=== PATIENT | male | born 1970 | race Caucasian/White ===

== ENCOUNTER 2016-12-11 06:54 | Emergency (ER) | payer BC, OTHER ==
[~2016-12-11] VITALS: Ht 170.2 cm; Wt 81.2 kg
[~2016-12-11 06:54] MED LIST: ACETAMINOPHEN PO; EFFSR75 PO; LPT40 PO
[2016-12-11 07:04] VITALS: TEMP 36.7; Ht 170.2 cm; Wt 81.2 kg
[2016-12-11] MEDS ORDERED: MoRPHine SULFATE 10 MG/ML CARP/VIAL IM STA (07:23)
[2016-12-11] MEDS ORDERED: KETOROLAC TROMETHAMINE 60 MG/2 ML VIAL IM STA (07:23)
[2016-12-11] MEDS ORDERED: ONDANSETRON 4MG OD TAB PO ONE (07:30)
[2016-12-11] MEDS ORDERED: METH1TAB19 PO (07:35)
[2016-12-11] MEDS ORDERED: CYCL5TAB PO (07:35)
[2016-12-11] MEDS ORDERED: LPT/40 PO (07:35)
[2016-12-11] MEDS ORDERED: OXYC1TAB3 PO (08:55)
[2016-12-11 09:03] VITALS: BP 146/98; PULSE 87; O2SAT 96
--- NOTE | 2016-12-11 09:11 | EMERGENCY ROOM VISIT NOTE ---
History First contact with patient: 07:07 Chief Complaint: NECK PAIN Stated Complaint: SHOULDER,BACK PAIN,NECK History of Present Illness The patient is a 46 year old male who presents to the Emergency Room with complaints of severe neck, left shoulder and left upper extremity pain. The patient reports that he has been dealing with this pain for the past 1.5 months. He denies any recent injury to the neck, shoulder or upper extremity. His PCP, Dr. Mcqueen, got x-rays of his neck and shoulder. He was referred to Dr. Rodas, and saw his physician orthodontist assistant approximately 3-4 weeks ago. An injection was performed in the left shoulder without any relief. He was also given a prescription for prednisone. The patient reports that he was also eventually given a prescription for gabapentin 100 mg 3 times a day, all of which have not helped his pain. He complains of a burning sensation from the neck all the way to the shoulder and into the arm. He does admit to a prior history of severe trauma to the left forearm/wrist region, and has chronic ulnar weakness, decreased sensation and pain in his hand. He however reports that this pain is worsening, and now extending into the thumb, index and long fingers as well. The pain is worse with movement of the neck. Dr. Rodas's office wanted an MRI of the back. The patient reports that Dr. Mcqueen does not think that he needs an MRI. The patient voices severe frustration because of his worsening condition, and rates his discomfort a 10 out of 10. He cannot sleep because of the prednisone side effects, and has also broken out in a rash on his chest and back, along with diaphoresis as well. The patient is no longer taking prednisone. Review of Systems 10 system review was performed and was negative except for pertinent positives and negatives as indicated in history of present illness Social History Smoking Status: Never Smoker Current/Historical Medications Scheduled Atorvastatin (Lipitor), 40 MG PO DAILY Methylphenidate Hcl (Methylphenidate Hcl Er), 54 MG PO DAILY Venlafaxine Hcl (Effexor Extended Rel), 75 MG PO DAILY Scheduled PRN Cyclobenzaprine Hcl (Flexeril), 5 MG PO BID PRN for Muscle Spasms Oxycodone Ir (Roxicodone Ir), 1-2 TAB PO Q4H PRN for Pain Physical Exam Vital Signs Date Time Temp Pulse Resp B/P (MAP) Pulse Ox O2 Delivery O2 Flow Rate FiO2 12/11/16 09:03 87 16 146/98 96 12/11/16 07:04 36.7 99 18 163/84 98 Room Air Physical Exam CONSTITUTIONAL: Healthy and well nourished. Alert and oriented X 3 with positive affect. Patient appears in moderately severe discomfort from pain. HEENT: Normocephalic, atraumatic. Pupils equal, round and reactive. NECK: Full active range of motion without discomfort. Patient has reproducible pain/paresthesias the left upper extremity with both left and right lateral gaze. No palpable muscle spasms or step-offs within the central cervical spine. RESPIRATORY: Clear to auscultation bilaterally with no wheezing, crackles, rhonchi or stridor. CARDIOVASCULAR: Regular rate and rhythm with no murmurs, rubs or gallops. GASTROINTESTINAL: Bowel sounds present in all quadrants. Soft and nontender to palpation. MUSCULOSKELETAL: Examination shows a well-healed wound/surgical incision over the left on her aspect of the wrist. 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 Also has a positive compression test at the cubital tunnel. He has relatively decent range of motion of the left shoulder which causes some discomfort. 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 The patient reports that this is chronic. No additional tenderness to palpation through the intrascapular region or central thoracolumbar spine. Pulses are intact. INTEGUMENTARY: No rash or other significant dermatologic conditions noted. NEUROLOGIC: No focal neurologic deficits noted. Left hand and fingers are grossly sensory intact. Medical Decision & Procedures Medications Administered Medications (Trade) Dose Ordered Sig/Shawanda Route Start Time Stop Time Status Last Admin Dose Admin Morphine Sulfate (MoRPHine SULFATE INJ) 10 mg NOW STAT IM 12/11/16 07:23 12/11/16 07:25 DC 12/11/16 07:36 10 MG Ketorolac Tromethamine (Toradol Inj) 60 mg NOW STAT IM 12/11/16 07:23 12/11/16 07:25 DC 12/11/16 07:36 60 MG Ondansetron HCl (Zofran Odt) 4 mg ONE ONCE PO 12/11/16 07:30 12/11/16 07:31 DC 12/11/16 07:36 4 MG ED Course Patient history and physical exam were performed. Nurse's notes were reviewed. Vital signs were reviewed and normal. The patient appears quite frustrated today with his course of treatment of his medical condition. He brought a copy of his x-rays on disc for review. The patient reports that his PCP and current orthopedic surgeon are at odds as to need for MRI studies of the neck. The patient reports that he cannot tolerate the pain anymore. He is currently on gabapentin, recently finished a round of corticosteroids and taking Tylenol and Motrin without relief. The patient was administered IM morphine and Toradol, along with Zofran ODT to prevent nausea. This completely resolved the patient's pain, but was still complaining of numbness of the left upper extremity. The patient was provided contact for Dr. Chaidez, spine surgeon on-call that he may call tomorrow for an appointment. The patient also requested contact information for another physician as he would like to find a new PCP. He would prefer a doctor near where he lives in [place]. Was provided contact information for [facility], Dr. Ricks. He was provided a prescription for OxyIR 5 mg, dispensed #24 with no refills. He was encouraged to continue with his gabapentin prescription, which the patient reports that he has a refill. The patient was happy with plan of care, and voiced understanding of all discharge instructions. Medical Decision See previous section [place] Drug Monitoring Program Search Results: patient reviewed within database, no issues identified Medication Reconcilliation Current Medication List: was personally reviewed by me Blood Pressure Screening Patient's blood pressure: Normal blood pressure Impression Primary Impression: Left cervical radiculopathy Departure Information Prescriptions Oxycodone Ir (Roxicodone Ir) 5 Mg Tab 1-2 TAB PO Q4H Y for Pain, #24 TAB For Initial Treatment Prov: Jeffrey King PA 12/11/16 Referrals No Doctor, Assigned (PCP) Patient Instructions My [facility] [employer]
[2016-12-11] MEDS ORDERED: ATOR10TA88 PO (20:39)
[2016-12-11] MEDS ORDERED: GABA-112 PO (20:39)
[2016-12-14] MEDS ORDERED: LCTX PO (14:48)
[2016-12-14] MEDS ORDERED: OXYC1TAB3 PO (14:48)
[2016-12-14] MEDS ORDERED: DXY100 PO (14:48)
== END 2016-12-11 09:04 | disposition home or self-care (01) ==
LOC: C.EDB 06:56 → C.EDA 09:04
DX: M54.12 Radiculopathy, cervical region (principal); Z79.899 Other long term (current) drug therapy

== ENCOUNTER 2016-12-11 19:30 | Inpatient (IN) | payer BC ==
[~2016-12-11] VITALS: Ht 170.2 cm; Wt 80.7 kg
[~2016-12-11 19:30] MED LIST changes: +CYCL5TAB PO; +LPT/40 PO; +METH1TAB19 PO; +OXYC1TAB3 PO
[2016-12-11] MEDS ORDERED: MoRPHine SULFATE 10 MG/ML CARP/VIAL IV STA (19:45)
[2016-12-11] MEDS ORDERED: ONDANSETRON INJ 2 MG/ML 2 ML VIAL IV STA (19:45)
[2016-12-11] MEDS ORDERED: SODIUM CHLORIDE 0.9% 1000ML 1,000 ML IV ONE (19:45)
[2016-12-11] MEDS ORDERED: KETOROLAC TROMETHAMINE 30 MG/ML VIAL IV STA (19:45)
--- NOTE | 2016-12-11 19:48 | EMERGENCY ROOM VISIT NOTE ---
History Report prepared by Belkis: Javad Porras Under the Supervision of: Dr. dAen Sylvester M.D. First contact with patient: 19:40 Chief Complaint: SHOULDER PAIN Stated Complaint: EXTREME PAIN IN LT SHOULDER/NECK AND BACK History of Present Illness The patient is a 46 year old male who presents to the Emergency Room with complaints of constant left shoulder pain that started a couple of days ago. He rates his pains a 9/10 in severity. He states that he was seen here earlier today for the same symptoms. The patient states that he was sent home with oxycodone. He reports that he took 1 Oxycodone and 2 Gabapentin 100 mg at 1500. The patient states that he is still experiencing nerve pain in his left shoulder into his left upper back and left elbow. The patient denies chest pain and SOB. Source of History: patient Onset: a couple of days ago Position: shoulder (left) Symptom Intensity: 9/10 Timing: constant Modifying Factors (Relieving): other (Oxycodone) Associated Symptoms: + back pain, No chest pain, No SOB Review of Systems See HPI for pertinent positives & negatives. A total of 10 systems reviewed and were otherwise negative. Past Medical & Surgical Surgical Problems: (1) History of hand surgery Family History Diabetes mellitus Heart disease Hypertension Kidney disease Kidney stones Social History Smoking Status: Never Smoker Alcohol Use: occasionally Drug Use: none Marital Status: Housing Status: lives with family Occupation Status: employed Current/Historical Medications Scheduled Atorvastatin (Lipitor), 10 MG PO DAILY Gabapentin (Neurontin), 100 MG PO TID Methylphenidate Hcl (Methylphenidate Hcl Er), 54 MG PO DAILY Venlafaxine Hcl (Effexor Extended Rel), 75 MG PO DAILY Scheduled PRN Cyclobenzaprine Hcl (Flexeril), 5 MG PO BID PRN for Muscle Spasms Oxycodone Ir (Roxicodone Ir), 1-2 TAB PO Q4H PRN for Pain Allergies Coded Allergies: Lincomycin (Unverified Allergy, Mild, 12/11/16) Physical Exam Vital Signs Date Time Temp Pulse Resp B/P (MAP) Pulse Ox O2 Delivery O2 Flow Rate FiO2 12/12/16 00:05 111 18 105/73 92 Room Air 12/12/16 00:03 105 12/11/16 22:45 114 20 131/86 95 Room Air 12/11/16 20:51 129 22 131/87 95 12/11/16 20:16 94 Room Air 12/11/16 19:33 38.3 142 18 130/89 94 Room Air Physical Exam GENERAL: Patient is a healthy-appearing well-nourished 46 year old male. HEAD: Normocephalic atraumatic EYES: Ocular movements intact pupils equal and react to light OROPHARYNX mucous membranes are moist no exudates present no erythema or edema present NECK: Supple no nuchal rigidity CHEST: Good equal expansion. Macular papule rash. LUNGS: Clear and equal to auscultation CARDIAC: Normal S1 and S2 ABDOMEN: Soft nontender no guarding BACK: No CVA tenderness EXTREMITIES: No pain upon palpation normal muscle strength in all groups no clubbing cyanosis or edema. Full ROM of shoulder, elbow, and left wrist. NEURO: Patient is following commands and answering questions appropriately. Alert and oriented x3 Cranial Nerves 2-12 grossly intact Medical Decision & Procedures ER Provider Diagnostic Interpretation: L SHOULDER MIN 2 VIEWS ROUTINE CLINICAL HISTORY: Pt c/o left shoulder pain pain COMPARISON: 09/06/2013 DISCUSSION: The bones and joint spaces appear intact. There is no evidence of fracture, dislocation or bony disease. There is no evidence for soft tissue swelling. IMPRESSION: Negative study. The above report was generated using voice recognition software. It may contain grammatical, syntax or spelling errors. Electronically signed by: Filiberto Singh M.D. 12/11/2016 8:16 PM Dictated Date/Time: 12/11/2016 8:16 PM CHEST ONE VIEW PORTABLE CLINICAL HISTORY: Pt c/o left shoulder pain pain COMPARISON STUDY: No previous studies for comparison. FINDINGS: The bones soft tissues and hemidiaphragms are normal. The cardiomediastinal silhouette is normal. The lungs are clear. The pulmonary vasculature is normal. IMPRESSION: Negative chest. The above report was generated using voice recognition software. It may contain grammatical, syntax or spelling errors. Electronically signed by: Filiberto Singh M.D. 12/11/2016 8:16 PM Dictated Date/Time: 12/11/2016 8:16 PM CERVICAL SPINE COMBO HISTORY: Pain. Neuropathy. Pt c/o severe neck pain, fever TECHNIQUE: Multiplanar multisequence MRI of the cervical spine was performed both before and after the use of intravenous contrast. COMPARISON STUDY: None: Findings Signal characteristics of the vertebral bodies are unremarkable. Mild degenerative disc changes throughout. No abnormal postcontrast enhancement. Some compromise exam technically due to patient motion C2-C3: No significant central canal or neural foraminal narrowing. C3-C4: Broad-based bulging disc. Minimal impact with anterior cervical cord. C4-C5: Mild osteophytic narrowing right neuroforamina C5-C6: Mild broad-based bulging disc. Contact with but no significant deformity of the cervical cord. Mild osteophytic narrowing left neuroforamina C6-C7: Broad-based bulging disc showing contact with the cervical cord. No significant deformity of that structure. Moderate narrowing of the neuroforamina bilaterally. C7-T1: No significant central canal or neural foraminal narrowing. IMPRESSION: 1. Moderate broad-based bulging discs C3-C4, C5-C6, and C6-C7. 2. Osteophytic narrowing of several neural foramina bilaterally including a mild osteophytic narrowing of the left neuroforamina at C5-C6. 3. No abnormal postcontrast enhancement. The above report was generated using voice recognition software. It may contain grammatical, syntax or spelling errors. Electronically signed by: Filiberto Singh M.D. 12/11/2016 10:42 PM Dictated Date/Time: 12/11/2016 10:38 PM Laboratory Results 12/11/16 20:00 Red Blood Count 4.91, Mean Corpuscular Volume 90.8, Mean Corpuscular Hemoglobin 30.1, Mean Corpuscular Hemoglobin Concent 33.2, Mean Platelet Volume 10.0, Neutrophils (%) (Auto) 84.7, Lymphocytes (%) (Auto) 6.8, Monocytes (%) (Auto) 6.0, Eosinophils (%) (Auto) 1.1, Basophils (%) (Auto) 0.1, Neutrophils # (Auto) 12.38, Lymphocytes # (Auto) 1.00, Monocytes # (Auto) 0.88, Eosinophils # (Auto) 0.16, Basophils # (Auto) 0.02 12/11/16 20:00 Test 12/11/16 20:00 12/11/16 20:01 12/11/16 20:45 12/11/16 20:47 White Blood Count 14.63 K/uL (4.8-10.8) Red Blood Count 4.91 M/uL (4.7-6.1) Hemoglobin 14.8 g/dL (14.0-18.0) Hematocrit 44.6 % (42-52) Mean Corpuscular Volume 90.8 fL (80-100) Mean Corpuscular Hemoglobin 30.1 pg (25-34) Mean Corpuscular Hemoglobin Concent 33.2 g/dl (32-36) Platelet Count 210 K/uL (130-400) Mean Platelet Volume 10.0 fL (7.4-10.4) Neutrophils (%) (Auto) 84.7 % Lymphocytes (%) (Auto) 6.8 % Monocytes (%) (Auto) 6.0 % Eosinophils (%) (Auto) 1.1 % Basophils (%) (Auto) 0.1 % Neutrophils # (Auto) 12.38 K/uL (1.4-6.5) Lymphocytes # (Auto) 1.00 K/uL (1.2-3.4) Monocytes # (Auto) 0.88 K/uL (0.11-0.59) Eosinophils # (Auto) 0.16 K/uL (0-0.5) Basophils # (Auto) 0.02 K/uL (0-0.2) RDW Standard Deviation 44.8 fL (36.4-46.3) RDW Coefficient of Variation 13.6 % (11.5-14.5) Immature Granulocyte % (Auto) 1.3 % Immature Granulocyte # (Auto) 0.19 K/uL (0.00-0.02) Red Blood Cell Morphology Unremarkable Erythrocyte Sedimentation Rate 2 mm/hr (0-14) Prothrombin Time 9.5 SECONDS (9.0-12.0) Prothromb Time International Ratio 0.9 (0.9-1.1) Activated Partial Thromboplast Time 24.2 SECONDS (21.0-31.0) Partial Thromboplastin Ratio 0.9 Anion Gap 8.0 mmol/L (3-11) Est Creatinine Clear Calc Drug Dose 96.7 ml/min Estimated GFR () 105.6 Estimated GFR (Non- 91.1 BUN/Creatinine Ratio 23.4 (10-20) Calcium Level 8.3 mg/dl (8.5-10.1) Ferritin 826.0 ng/ml (8.0-388.0) Total Bilirubin 0.6 mg/dl (0.2-1) Aspartate Amino Transf (AST/SGOT) 198 U/L (15-37) Alanine Aminotransferase (ALT/SGPT) 156 U/L (12-78) Alkaline Phosphatase 87 U/L (45-117) C-Reactive Protein 0.91 mg/dl (0-0.29) Total Protein 6.4 gm/dl (6.4-8.2) Albumin 3.3 gm/dl (3.4-5.0) Globulin 3.1 gm/dl (2.5-4.0) Albumin/Globulin Ratio 1.1 (0.9-2) Acetaminophen Level < 2 ug/ml (10-30) Lyme Disease IgG Antibody NEG (NEG) Lyme Disease IgM Antibody NEG (NEG) Monoscreen NEG (NEG) Bedside Lactic Acid Venous 1.19 mmol/L (0.90-1.70) Urine Color YELLOW Urine Appearance CLEAR (CLEAR) Urine pH 5.0 (4.5-7.5) Urine Specific [place] 1.014 (1.000-1.030) Urine Protein NEG (NEG) Urine Glucose (UA) NEG (NEG) Urine Ketones NEG (NEG) Urine Occult Blood NEG (NEG) Urine Nitrite NEG (NEG) Urine Bilirubin NEG (NEG) Urine Urobilinogen NEG (NEG) Urine Leukocyte Esterase NEG (NEG) Urine WBC (Auto) 1-5 /hpf (0-5) Urine RBC (Auto) 0-4 /hpf (0-4) Urine Hyaline Casts (Auto) 1-5 /lpf (0-5) Urine Epithelial Cells (Auto) 0-5 /lpf (0-5) Urine Bacteria (Auto) NEG (NEG) Influenza Type A (RT-PCR) Neg for Influ A (NEG) Influenza Type A Antigen Neg for Influ A (NEG) Influenza Type B Antigen Neg for Influ B (NEG) Influenza Type B (RT-PCR) Neg for Influ B (NEG) Test 12/11/16 23:20 Labs reviewed by ED physician. Medications Administered Medications (Trade) Dose Ordered Sig/Shawanda Route Start Time Stop Time Status Last Admin Dose Admin Sodium Chloride 1,000 ml @ 999 mls/hr Q1H1M ONCE IV 12/11/16 19:45 12/11/16 20:45 DC 12/11/16 20:10 999 MLS/HR Ketorolac Tromethamine (Toradol Inj) 30 mg NOW STAT IV 12/11/16 19:45 12/11/16 19:49 DC 12/11/16 20:11 30 MG Morphine Sulfate (MoRPHine SULFATE INJ) 10 mg NOW STAT IV 12/11/16 19:45 12/11/16 19:49 DC 12/11/16 20:11 10 MG Ondansetron HCl (Zofran Inj) 4 mg NOW STAT IV 12/11/16 19:45 12/11/16 19:49 DC 12/11/16 20:11 4 MG Diphenhydramine HCl (Benadryl Inj) 50 mg NOW STAT IV 12/11/16 20:29 12/11/16 20:30 DC 12/11/16 20:33 50 MG Piperacillin Sod/ Tazobactam Sod (Zosyn Iv) 4.5 gm NOW STAT IV 12/11/16 20:40 12/11/16 20:42 DC 12/11/16 22:46 4.5 GM Vancomycin HCl 1000 mg/Sodium Chloride 270 ml @ 125 mls/hr NOW STAT IV 12/11/16 20:40 12/11/16 22:49 DC 12/12/16 00:04 125 MLS/HR Sodium Chloride 1,000 ml @ 999 mls/hr Q1H1M STAT IV 12/11/16 20:42 12/11/16 21:42 DC 12/11/16 20:51 999 MLS/HR Sodium Chloride 500 ml @ 999 mls/hr Q31M STAT IV 12/11/16 21:36 12/11/16 22:06 DC 12/12/16 00:04 999 MLS/HR ED Course 1909: Past medical records reviewed. The patient was evaluated in room B11B. A complete history and physical examination was performed. 5: Ordered Zofran Injection 4 mg IV, Morphine Sulfate 10 mg IV, Toradol Injection 30 mg IV, Sodium Chloride 1000 ml @ 999 mls/hr IV. 2019: Ordered Benadryl Injection 50 mg IV. 2039: Ordered Vancomycin HCl 1000 mg/ Sodium Chloride 270 ml @ 125 mls/hr IV, Zosyn Iv 4.5 mg IV. 2041: Ordered Sodium Chloride 1000 ml @ 999 mls/hr IV. 2136: Ordered Sodium Chloride 500 ml @ 999 mls/hr IV. 2243: Ordered Zosyn Iv 4.5 gm IV. 2245: Ordered 8.2 mmol IV. Medical Decision The differential diagnosis includes etiologies such as sepsis, UTI, pneumonia, metabolic, electrolyte abnormalities, cardiac sources, intracerebral event, toxicologic, neurologic, as well as others were entertained. This is a 46-year-old male who was seen earlier in the emergency department for left shoulder pain. The patient returns to emergency department complaining of left shoulder pain. He is febrile here and tachycardic. Based on these findings a septic workup was initiated. An ESR CRP as well as lactic acid were obtained. These were all found to be normal. Blood cultures were obtained. The patient was given normal saline bolus 30 mL's per kilogram and started on Zosyn as well as by can mycin. He does have a slight elevation in his liver enzymes therefore a hepatitis panel was initiated. Due to the patient's pain running down his left arm he was sent for an MRI of the C-spine however this did not show any acute process. I did discuss the case with the hospitalist service who agreed to admit the patient. Patient was in agreement with the treatment plan. Medication Reconcilliation Current Medication List: was personally reviewed by me Blood Pressure Screening Patient's blood pressure: Elevated blood pressure Impression Primary Impression: Left shoulder pain Additional Impressions: Fever SIRS (systemic inflammatory response syndrome) Scribe Attestation The scribe's documentation has been prepared under my direction and personally reviewed by me in its entirety. I confirm that the note above accurately reflects all work, treatment, procedures, and medical decision making performed by me. Departure Information Dispostion Home / Self-Care Referrals No Doctor, Assigned (PCP) Patient Instructions My [facility] Problem Qualifiers Primary Impression: Left shoulder pain Chronicity: acute Qualified Codes: M25.512 - Pain in left shoulder Additional Impressions: Fever Fever type: unspecified Qualified Codes: R50.9 - Fever, unspecified
--- NOTE | 2016-12-11 20:17 | DIAGNOSTIC IMAGING REPORT ---
CHEST ONE VIEW PORTABLE CLINICAL HISTORY: Pt c/o left shoulder pain pain COMPARISON STUDY: No previous studies for comparison. FINDINGS: The bones soft tissues and hemidiaphragms are normal. The cardiomediastinal silhouette is normal. The lungs are clear. The pulmonary vasculature is normal. IMPRESSION: Negative chest. The above report was generated using voice recognition software. It may contain grammatical, syntax or spelling errors. Electronically signed by: Filiberto Singh M.D. 12/11/2016 8:16 PM Dictated Date/Time: 12/11/2016 8:16 PM
--- NOTE | 2016-12-11 20:18 | DIAGNOSTIC IMAGING REPORT ---
L SHOULDER MIN 2 VIEWS ROUTINE CLINICAL HISTORY: Pt c/o left shoulder pain pain COMPARISON: 09/06/2013 DISCUSSION: The bones and joint spaces appear intact. There is no evidence of fracture, dislocation or bony disease. There is no evidence for soft tissue swelling. IMPRESSION: Negative study. The above report was generated using voice recognition software. It may contain grammatical, syntax or spelling errors. Electronically signed by: Filiberto Singh M.D. 12/11/2016 8:16 PM Dictated Date/Time: 12/11/2016 8:16 PM
[2016-12-11] MEDS ORDERED: DiphenhydrAMINE HCL 50 MG/ML VIAL ONE (20:19)
[2016-12-11 20:28] LABS: HEMATOCRIT 44.6 % (42-52); MEAN CELL VOLUME 90.8 fL (80-100); MEAN CORPUSCULAR HEMOGLOBIN 30.1 pg (25-34); MEAN CORPUSCULAR HGB CONC 33.2 g/dl (32-36); PLATELET COUNT 210 K/uL (130-400); RED BLOOD COUNT 4.91 M/uL (4.7-6.1); WHITE BLOOD COUNT 14.63 K/uL (4.8-10.8)
[2016-12-11] MEDS ORDERED: DiphenhydrAMINE HCL 50 MG/ML VIAL IV STA (20:29)
[2016-12-11 20:39] LABS: INR 0.9 (0.9-1.1); PARTIAL THROMBOPLASTIN RATIO 0.9; PROTHROMBIN TIME (PATIENT) 9.5 SECONDS (9.0-12.0)
[2016-12-11] MEDS ORDERED: ATOR10TA88 PO (20:39)
[2016-12-11] MEDS ORDERED: GABA-112 PO (20:39)
[2016-12-11] MEDS ORDERED: VANCOMYCIN INJ 1,000 MG in SODIUM CHLORIDE 0.9% 250ML 250 ML IV STA (20:40)
[2016-12-11] MEDS ORDERED: PIPERACILLIN/TAZOBACTAM 4.5 GM/100ML D5W IV STA (20:40)
[2016-12-11] MEDS ORDERED: SODIUM CHLORIDE 0.9% 1000ML 1,000 ML IV STA (20:42)
[2016-12-11 20:47] LABS: BUN/CREATININE RATIO 23.4 (10-20); CALCIUM 8.3 mg/dl (8.5-10.1)
[2016-12-11 20:49] LABS: ALB/GLOB RATIO 1.1 (0.9-2); C-REACTIVE PROTEIN 0.91 mg/dl (0-0.29)
[2016-12-11 21:06] LABS: BASO % 0.1 %; BASO ABS # 0.02 K/uL (0-0.2); COMPLETE YES; EOS % 1.1 %; IG% 1.3 %; LYMPH % 6.8 %; NEUT % 84.7 %
[2016-12-11 21:17] LABS: LYME DISEASE AB IGG NEG (NEG); LYME DISEASE AB IGM NEG (NEG)
[2016-12-11] MEDS ORDERED: SODIUM CHLORIDE 0.9% 500ML 500 ML IV STA (21:36)
[2016-12-11 22:05] LABS: URINE APPEARANCE CLEAR (CLEAR); URINE BILIRUBIN NEG (NEG); URINE COLOR YELLOW; URINE EPITHELIAL CELL AUTO 0-5 /lpf (0-5); URINE NITRITE NEG (NEG); URINE SPECIFIC GRAVITY 1.014 (1.000-1.030); UROBILINOGEN NEG (NEG); ZZUR CULT IF INDIC CLEAN CATCH NO
[2016-12-11 22:16] LABS: MANUAL MICROSCOPIC REQUIRED? NO; REVIEW REQ? NO
[2016-12-11] MEDS ORDERED: PIPERACILLIN/TAZOBACTAM 4.5 GM/100ML D5W ONE (22:43)
--- NOTE | 2016-12-11 22:44 | DIAGNOSTIC IMAGING REPORT ---
CERVICAL SPINE COMBO HISTORY: Pain. Neuropathy. Pt c/o severe neck pain, fever TECHNIQUE: Multiplanar multisequence MRI of the cervical spine was performed both before and after the use of intravenous contrast. COMPARISON STUDY: None: Findings Signal characteristics of the vertebral bodies are unremarkable. Mild degenerative disc changes throughout. No abnormal postcontrast enhancement. Some compromise exam technically due to patient motion C2-C3: No significant central canal or neural foraminal narrowing. C3-C4: Broad-based bulging disc. Minimal impact with anterior cervical cord. C4-C5: Mild osteophytic narrowing right neuroforamina C5-C6: Mild broad-based bulging disc. Contact with but no significant deformity of the cervical cord. Mild osteophytic narrowing left neuroforamina C6-C7: Broad-based bulging disc showing contact with the cervical cord. No significant deformity of that structure. Moderate narrowing of the neuroforamina bilaterally. C7-T1: No significant central canal or neural foraminal narrowing. IMPRESSION: 1. Moderate broad-based bulging discs C3-C4, C5-C6, and C6-C7. 2. Osteophytic narrowing of several neural foramina bilaterally including a mild osteophytic narrowing of the left neuroforamina at C5-C6. 3. No abnormal postcontrast enhancement. The above report was generated using voice recognition software. It may contain grammatical, syntax or spelling errors. Electronically signed by: Filiberto Singh M.D. 12/11/2016 10:42 PM Dictated Date/Time: 12/11/2016 10:38 PM
[2016-12-11] MEDS ORDERED: GADAVIST IV PRN (22:45)
[2016-12-11 23:53] LABS: INFLUENZA A PCR Neg for Influ A (NEG); INFLUENZA B PCR Neg for Influ B (NEG)
[2016-12-12 00:09] LABS: CKMB/CK RATIO 1.9 (0-3.0)
--- NOTE | 2016-12-12 00:43 | History and Physical ---
History & Physical Date & Time of Service: Dec 12, 2016 at 00:43 . Chief Complaint: neck and left shoulder pain . Primary Care Physician: No Doctor, Assigned History of Present Illness Source: patient, clinic records, hospital records 46-year-old male followed by Dr. Mcqueen. History of cervical degenerative disc disease and other problems noted below. Experienced worsening neck and left shoulder pain a couple months ago. Was seen by Orthopedics a few weeks ago.. Left shoulder injected with steroids, patient believes for possible tendinitis. Seen in clinic 11/[address] Mcqueen and started on gabapentin. He continued to have cervical pain that seemed to radiate to his left hand. Seen in urgent care center and prescribed prednisone. Seen in ED here earlier today because of worsening pain. Given prescription for oxycodone interaction is made for outpatient follow-up. This afternoon, he developed fever and chills. He returned to the ED this evening because of persistent severe pain left shoulder. Pt reports that oxycodone helps some, but does not relieve the pain. Pain severe- 9-10/10, worse with movement of arm. Seems that he has both localized shoulder pain as well as cervical pain radiating down the left arm. . Past Medical/Surgical History Chronic and Resolved Medical Problems: (1) ADHD Status: Chronic (2) Degenerative cervical disc Status: Chronic (3) Dyslipidemia Status: Chronic (4) GERD (gastroesophageal reflux disease) Status: Chronic Surgical Problems: (1) Status post reconstruction hand Status: Chronic . Family History Diabetes mellitus Heart disease Hypertension Kidney disease Kidney stones Social History Smoking Status: Never Smoker Alcohol Use: socially Drug Use: none Marital Status: Occupational Status: employed Multi-Drug Resistant Organisms History of MDRO: No Allergies Coded Allergies: Lincomycin (Unverified Allergy, Mild, 12/11/16) Home Medications Scheduled Atorvastatin (Lipitor), 10 MG PO DAILY Gabapentin (Neurontin), 100 MG PO TID Methylphenidate Hcl (Methylphenidate Hcl Er), 54 MG PO DAILY Venlafaxine Hcl (Effexor Extended Rel), 75 MG PO DAILY Scheduled PRN Cyclobenzaprine Hcl (Flexeril), 5 MG PO BID PRN for Muscle Spasms Oxycodone Ir (Roxicodone Ir), 1-2 TAB PO Q4H PRN for Pain Review of Systems Constitutional: + fever, + chills, No weight loss Eyes: No worsening of vision, No diplopia ENT: No nasal symptoms, No sore throat Respiratory: No cough, No shortness of breath Cardiovascular: No chest pain Abdomen: No pain, No nausea, No vomiting, No diarrhea Musculoskeletal: + joint pain Genitourinary - Male: No hematuria, No dysuria Neurologic: + problem reported (no headache) Endocrine: No excessive thirst, No excessive urination Hematologic / Lymphatic: No abnormal bleeding/bruising, No swollen lymph nodes Integumentary: + rash (rash on chest and back started few days ago) Physical Exam Vital Signs Date Time Temp Pulse Resp B/P (MAP) Pulse Ox O2 Delivery O2 Flow Rate FiO2 12/12/16 00:05 111 18 105/73 92 Room Air 12/12/16 00:03 105 12/11/16 22:45 114 20 131/86 95 Room Air 12/11/16 20:51 129 22 131/87 95 12/11/16 20:16 94 Room Air 12/11/16 19:33 38.3 142 18 130/89 94 Room Air General Appearance: WD/WN, + mild distress Head: normocephalic, atraumatic Eyes: normal inspection, PERRL, EOMI, sclerae normal (conjunctivae pink) ENT: hearing grossly normal, pharynx normal Neck: supple, no adenopathy, thyroid normal, trachea midline Respiratory/Chest: lungs clear, no respiratory distress, no accessory muscle use Cardiovascular: regular rate, rhythm, no edema, no gallop, no JVD, no murmur, normal peripheral pulses Abdomen/GI: normal bowel sounds, non tender, soft, no organomegaly, no pulsatile mass Extremities/Musculoskelatal: normal inspection, no calf tenderness, normal capillary refill, + pertinent finding (tenderness overlying left shoulder bilaterally; no erythema or warmth) 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 as tested (PERRL, EOMI), no motor/sensory deficits (motor strength grossly intact), alert, normal reflexes, oriented x 3 Skin: + rash (pustular rash trunk with multiple lesions) Diagnostics Laboratory Results Results Past 24 Hours Test 12/11/16 20:00 12/11/16 20:01 12/11/16 20:45 12/11/16 20:47 Range/Units White Blood Count 14.63 4.8-10.8 K/uL Red Blood Count 4.91 4.7-6.1 M/uL Hemoglobin 14.8 14.0-18.0 g/dL Hematocrit 44.6 42-52 % Mean Corpuscular Volume 90.8 80-100 fL Mean Corpuscular Hemoglobin 30.1 25-34 pg Mean Corpuscular Hemoglobin Concent 33.2 32-36 g/dl Platelet Count 210 130-400 K/uL Mean Platelet Volume 10.0 7.4-10.4 fL Neutrophils (%) (Auto) 84.7 % Lymphocytes (%) (Auto) 6.8 % Monocytes (%) (Auto) 6.0 % Eosinophils (%) (Auto) 1.1 % Basophils (%) (Auto) 0.1 % Neutrophils # (Auto) 12.38 1.4-6.5 K/uL Lymphocytes # (Auto) 1.00 1.2-3.4 K/uL Monocytes # (Auto) 0.88 0.11-0.59 K/uL Eosinophils # (Auto) 0.16 0-0.5 K/uL Basophils # (Auto) 0.02 0-0.2 K/uL RDW Standard Deviation 44.8 36.4-46.3 fL RDW Coefficient of Variation 13.6 11.5-14.5 % Immature Granulocyte % (Auto) 1.3 % Immature Granulocyte # (Auto) 0.19 0.00-0.02 K/uL Red Blood Cell Morphology Unremarkable Erythrocyte Sedimentation Rate 2 0-14 mm/hr Prothrombin Time 9.5 9.0-12.0 SECONDS Prothromb Time International Ratio 0.9 0.9-1.1 Activated Partial Thromboplast Time 24.2 21.0-31.0 SECONDS Partial Thromboplastin Ratio 0.9 Sodium Level 136 136-145 mmol/L Potassium Level 4.0 3.5-5.1 mmol/L Chloride Level 103 98-107 mmol/L Carbon Dioxide Level 25 21-32 mmol/L Anion Gap 8.0 3-11 mmol/L Blood Urea Nitrogen 23 7-18 mg/dl Creatinine 1.00 0.60-1.40 mg/dl Est Creatinine Clear Calc Drug Dose 96.7 ml/min Estimated GFR () 105.6 Estimated GFR (Non- 91.1 BUN/Creatinine Ratio 23.4 10-20 Random Glucose 96 70-99 mg/dl Calcium Level 8.3 8.5-10.1 mg/dl Ferritin 826.0 8.0-388.0 ng/ml Total Bilirubin 0.6 0.2-1 mg/dl Aspartate Amino Transf (AST/SGOT) 198 15-37 U/L Alanine Aminotransferase (ALT/SGPT) 156 12-78 U/L Alkaline Phosphatase 87 45-117 U/L C-Reactive Protein 0.91 0-0.29 mg/dl Total Protein 6.4 6.4-8.2 gm/dl Albumin 3.3 3.4-5.0 gm/dl Globulin 3.1 2.5-4.0 gm/dl Albumin/Globulin Ratio 1.1 0.9-2 Acetaminophen Level < 2 10-30 ug/ml Lyme Disease IgG Antibody NEG NEG Lyme Disease IgM Antibody NEG NEG Monoscreen NEG NEG Bedside Lactic Acid Venous 1.19 0.90-1.70 mmol/L Urine Color YELLOW Urine Appearance CLEAR CLEAR Urine pH 5.0 4.5-7.5 Urine Specific [place] 1.014 1.000-1.030 Urine Protein NEG NEG Urine Glucose (UA) NEG NEG Urine Ketones NEG NEG Urine Occult Blood NEG NEG Urine Nitrite NEG NEG Urine Bilirubin NEG NEG Urine Urobilinogen NEG NEG Urine Leukocyte Esterase NEG NEG Urine WBC (Auto) 1-5 0-5 /hpf Urine RBC (Auto) 0-4 0-4 /hpf Urine Hyaline Casts (Auto) 1-5 0-5 /lpf Urine Epithelial Cells (Auto) 0-5 0-5 /lpf Urine Bacteria (Auto) NEG NEG Influenza Type A (RT-PCR) Neg for Influ A NEG Influenza Type A Antigen Neg for Influ A NEG Influenza Type B Antigen Neg for Influ B NEG Influenza Type B (RT-PCR) Neg for Influ B NEG Test 12/11/16 21:39 12/11/16 23:20 Range/Units Creatine Kinase MB Ratio 1.9 0-3.0 Total Creatine Kinase 111 39-308 U/L Creatine Kinase MB 2.2 0.5-3.6 ng/ml Troponin I 0.025 0-0.045 ng/ml Hepatitis C Antibody NEG NEG Microbiology Results 12/11/16 Blood Culture, Received Pending 12/11/16 Blood Culture, Received Pending Diagnostic Radiology CHEST ONE VIEW PORTABLE FINDINGS: The bones soft tissues and hemidiaphragms are normal. The cardiomediastinal silhouette is normal. The lungs are clear. The pulmonary vasculature is normal. IMPRESSION: Negative chest. The above report was generated using voice recognition software. It may contain grammatical, syntax or spelling errors. Electronically signed by: Filiberto Singh M.D. 12/11/2016 8:16 PM Dictated Date/Time: 12/11/2016 8:16 PM L SHOULDER MIN 2 VIEWS ROUTINE CLINICAL HISTORY: Pt c/o left shoulder pain pain COMPARISON: 09/06/2013 DISCUSSION: The bones and joint spaces appear intact. There is no evidence of fracture, dislocation or bony disease. There is no evidence for soft tissue swelling. IMPRESSION: Negative study. The above report was generated using voice recognition software. It may contain grammatical, syntax or spelling errors. Electronically signed by: Filiberto Singh M.D. 12/11/2016 8:16 PM Dictated Date/Time: 12/11/2016 8:16 PM CERVICAL SPINE COMBO Findings Signal characteristics of the vertebral bodies are unremarkable. Mild degenerative disc changes throughout. No abnormal postcontrast enhancement. Some compromise exam technically due to patient motion C2-C3: No significant central canal or neural foraminal narrowing. C3-C4: Broad-based bulging disc. Minimal impact with anterior cervical cord. C4-C5: Mild osteophytic narrowing right neuroforamina C5-C6: Mild broad-based bulging disc. Contact with but no significant deformity of the cervical cord. Mild osteophytic narrowing left neuroforamina C6-C7: Broad-based bulging disc showing contact with the cervical cord. No significant deformity of that structure. Moderate narrowing of the neuroforamina bilaterally. C7-T1: No significant central canal or neural foraminal narrowing. IMPRESSION: 1. Moderate broad-based bulging discs C3-C4, C5-C6, and C6-C7. 2. Osteophytic narrowing of several neural foramina bilaterally including a mild osteophytic narrowing of the left neuroforamina at C5-C6. 3. No abnormal postcontrast enhancement. The above report was generated using voice recognition software. It may contain grammatical, syntax or spelling errors. Electronically signed by: Filiberto Singh M.D. 12/11/2016 10:42 PM Dictated Date/Time: 12/11/2016 10:38 PM . Impression Assessment and Plan FEVER / SEPSIS Meets criteria for sepsis per 2001 definition and current CMS guidelines (fever , tachycardia, leukocytosis). Hemodynamically stable. Serum lactate 1.19. Source of infection uncertain. Patient has been experiencing neck and left shoulder pain as outlined in the HPI. No apparent epidural abscess cervical spine per MRI. No soft tissue swelling left shoulder per plain films. Recent onset pustular rash on trunk. Blood cultures were obtained in ED and patient was started on broad-spectrum antibiotic coverage with piperacillin/tazobactam and vancomycin. Will continue same antibiotics. Check MRI left shoulder to rule out septic arthritis. Consult ID. NECK / SHOULDER PAIN Ongoing / progressive problem for several weeks. Imaging of cervical spine per MRI demonstrates degenerative disc disease as detailed above. Uncertain whether shoulder pain is radicular in nature or related to issue in shoulder region. Check MRI left shoulder to rule out septic arthritis. Consult Orthopedics for their input. ELEVATED LFT'S Liver US and hepatitis evaluation ordered in ED- results pending. Patient denies excessive use of alcohol or acetaminophen. Follow. VTE PROPHYLAXIS SQ enoxaparin. Ambulate. DISPOSITION Expected discharge to home. Internal Medicine follow-up with Dr. Mcqueen. . VTE Prophylaxis Given or contraindicated: Enoxaparin (Lovenox)SQ
[2016-12-12] MEDS ORDERED: ACETAMINOPHEN 325 MG TAB PO PRN (00:45)
[2016-12-12 01:46] VITALS: BP 128/87; PULSE 98; TEMP 36.8; O2SAT 98; Ht 170.2 cm; Wt 80.7 kg
[2016-12-12] MEDS ORDERED: PIPERACILL/TAZOBAC IV 4.5 GM in DEXTROSE 5% 100ML 100 ML IV SCH (06:30)
[2016-12-12] MEDS ORDERED: CYCLOBENZAPRINE HCL 5 MG TAB PO PRN (06:30)
[2016-12-12] MEDS ORDERED: PIPERACILL/TAZOBAC IV 4.5 GM in DEXTROSE 5% 100ML IV ONE (06:45)
[2016-12-12] MEDS ORDERED: VANCOMYCIN CONSULT ACTIVE PRN (06:45)
[2016-12-12] MEDS: OXYCODONE HCL IR 5 MG TAB (IMMEDIATE RELEASE) PO PRN ×2 (06:45→15:04)
[2016-12-12] MEDS ORDERED: PIPERACILL/TAZOBAC CONSULT ACTIVE PRN (06:45)
--- NOTE | 2016-12-12 06:46 | DIAGNOSTIC IMAGING REPORT ---
ABDOMEN LIMITED (US) HISTORY: 46 years-old Male Pt c/o transaminase elevation elevated LFTs. Patient complains of acute pain in the left shoulder and back. COMPARISON: None available TECHNIQUE: Multiple real-time sonographic images of the abdominal right upper quadrant were obtained assessing grayscale appearance and color flow. FINDINGS: Imaged pancreas is unremarkable with the tail obscured by bowel gas. The liver is within normal limits measuring up to 18.2 cm in length. Echogenic nonshadowing focus along the dependent aspect of the fundal gallbladder is noted, 4 mm without definite internal flow identified. No shadowing gallstones, gallbladder wall thickening or pericholecystic fluid collections. A positive sonographic Friedman sign was not reported. Common bile duct measures 0.3 cm. Right kidney is mildly echogenic measuring up to 13.5 x 5.6 x 5.1 cm. No hydronephrosis. IMPRESSION: 1. 4 mm non-shadowing focus along the dependent fundal gallbladder suggests small polyp or alternatively an adherent gallstone. No sonographic evidence of acute cholecystitis. 2. No biliary ductal dilation. 3. Increased echogenicity of the right kidney is suspicious for underlying medical renal disease. The above report was generated using voice recognition software. It may contain grammatical, syntax or spelling errors. Electronically signed by: Evgeny Tabor M.D. 12/12/2016 6:45 AM Dictated Date/Time: 12/12/2016 6:41 AM
[2016-12-12 07:13] VITALS: BP 135/87; PULSE 99; TEMP 37.3; O2SAT 93
[2016-12-12] MEDS: GABAPENTIN 300 MG CAP PO SCH ×3 (07:50→19:06)
[2016-12-12] MEDS: ATORVASTATIN 10 MG TAB PO SCH (07:51)
[2016-12-12] MEDS: ENOXAPARIN 40 MG/0.4 ML SYR SQ SCH (07:52)
[2016-12-12] MEDS ORDERED: VENLAFAXINE HCL XR 75 MG CAPXR PO SCH ×2 (08:00→21:00)
[2016-12-12] MEDS ORDERED: CONCERTA~ORDER AWAITING ACTION SCH (08:00)
[2016-12-12 08:42] LABS: HEMATOCRIT 44.7 % (42-52); MEAN CELL VOLUME 91.6 fL (80-100); MEAN CORPUSCULAR HEMOGLOBIN 29.3 pg (25-34); PLATELET COUNT 218 K/uL (130-400); RED BLOOD COUNT 4.88 M/uL (4.7-6.1); WHITE BLOOD COUNT 12.23 K/uL (4.8-10.8)
[2016-12-12 09:43] LABS: BUN/CREATININE RATIO 15.3 (10-20); CALCIUM 8.6 mg/dl (8.5-10.1); CREATININE 0.95 mg/dl (0.60-1.40); POTASSIUM 3.9 mmol/L (3.5-5.1)
[2016-12-12] MEDS: HYDROmorphone INJ 1 MG/ML SYR IV PRN ×3 (09:51→23:23)
[2016-12-12] MEDS: VANCOMYCIN INJ 1,000 MG in SODIUM CHLORIDE 0.9% 250ML 250 ML IV SCH ×2 (09:51→19:54)
[2016-12-12] MEDS: PIPERACILL/TAZOBAC IV 4.5 GM in DEXTROSE 5% 100ML IV SCH ×2 (09:51→17:39)
--- NOTE | 2016-12-12 11:00 | Progress Note ---
Progress Note Date of Service Dec 12, 2016. Progress Note ID Consult Dictated #[id number] A/P: 1. Febrile Illness 2. Elevated LFT's -Continue current abx, will add doxy emperically pending tick borne serologies -Follow cultures -Follow ЕКАТЕРИНА, etc as no clear infectious source found to date -Will follow, thank you
[2016-12-12] MEDS: DOXYCYCLINE HYCLATE 100 MG CAP PO SCH ×2 (12:18→19:06)
--- NOTE | 2016-12-12 12:38 | Orthopedic Consultation ---
Orthopedic Consultation Date of Consultation: Dec 12, 2016. Attending Physician: Marco Fofana M.D. Reason for Consultation: Cervical radiculopathy left History of Present Illness Is a very pleasant 46-year-old gentleman admitted to the emergency room yesterday. He states about a month ago he began with an acute onset of left upper extremity pain. It extends to the hand. It does not extend into the fingers. He does have chronic numbness involving the left ring and pinky finger since 2014 when he underwent left wrist surgery. Right upper extremity is asymptomatic. Symptoms involve the left shoulder upper arm to his forearm. He has very little neck pain. Activities such as sitting or driving reproduces symptoms. He is most comfortable and remaining active and moving. He is right- hand-dominant. Denies strength deficits. Denies bowel or bladder changes. He has trialed nurse behavioral health care which did help temporary relief his symptoms. He is also received a left shoulder injection a few weeks ago from Dr. Rivero in [place] with modest relief. He also reports receiving what sounds like a Medrol Dosepak from an urgent care facility which he since finished about 5 days ago. He reports no improvement with this. general orthopedics has also been consulted to evaluate his left shoulder. He reports the pain has progressively increased over the past month. He started with fevers and chills yesterday evening which brought him to the emergency room. Past Medical/Surgical History Medical Problems: (1) Left cervical radiculopathy Status: Acute Family History Diabetes mellitus Heart disease Hypertension Kidney disease Kidney stones Social History Smoking Status: Never Smoker Alcohol Use: socially Drug Use: none Marital Status: Housing Status: lives with family Occupation Status: employed Allergies Coded Allergies: Lincomycin (Unverified Allergy, Mild, 12/11/16) Home Medications Scheduled Atorvastatin (Lipitor), 10 MG PO DAILY Gabapentin (Neurontin), 100 MG PO TID Methylphenidate Hcl (Methylphenidate Hcl Er), 54 MG PO DAILY Venlafaxine Hcl (Effexor Extended Rel), 75 MG PO DAILY Scheduled PRN Cyclobenzaprine Hcl (Flexeril), 5 MG PO BID PRN for Muscle Spasms Oxycodone Ir (Roxicodone Ir), 1-2 TAB PO Q4H PRN for Pain Current Inpatient Medications Current Inpatient Medications Medications (Trade) Dose Ordered Sig/Shawanda Route Start Time Stop Time Status Last Admin Dose Admin Gadobutrol (Gadavist) 8.2 mmol UD PRN IV 12/11/16 22:45 12/15/16 22:44 Acetaminophen (Tylenol Tab) 650 mg Q4H PRN PO 12/12/16 00:45 01/11/17 00:44 Oxycodone HCl (Roxicodone Immediate Rel Tab) 5 mg Q6H PRN PO 12/12/16 04:15 12/26/16 04:14 Oxycodone HCl (Roxicodone Immediate Rel Tab) 10 mg Q6H PRN PO 12/12/16 04:15 12/26/16 04:14 12/12/16 06:45 10 MG Gabapentin (Neurontin Cap) 300 mg TID PO 12/12/16 08:00 01/11/17 07:59 12/12/16 07:50 300 MG Atorvastatin Calcium (Lipitor Tab) 10 mg DAILY PO 12/12/16 08:00 01/11/17 07:59 12/12/16 07:51 10 MG Cyclobenzaprine HCl (Flexeril Tab) 5 mg BID PRN PO 12/12/16 06:30 01/11/17 06:29 12/12/16 07:51 5 MG Miscellaneous Information (Order Awaiting Action) 1 ea QS N/A 12/12/16 08:00 01/11/17 07:59 Hydromorphone HCl (Dilaudid Inj) 1 mg Q4H PRN IV 12/12/16 06:30 12/26/16 06:29 12/12/16 09:51 1 MG Vancomycin HCl 1000 mg/Sodium Chloride 270 ml @ 125 mls/hr Q10H IV 12/12/16 10:00 12/14/16 09:59 12/12/16 09:51 125 MLS/HR Enoxaparin Sodium (Lovenox Inj) 40 mg QAM SQ 12/12/16 08:00 01/11/17 07:59 Piperacillin Sod/ Tazobactam Sod 4.5 gm/Dextrose 120 ml @ 30 mls/hr Q8H IV 12/12/16 10:00 12/14/16 09:59 12/12/16 09:51 30 MLS/HR Piperacillin Sod/ Tazobactam Sod (Consult) 1 ea UD PRN N/A 12/12/16 06:45 01/11/17 06:44 Vancomycin HCl (Consult) 1 ea UD PRN N/A 12/12/16 06:45 01/11/17 06:44 Venlafaxine HCl (effeXOR EXTENDED REL CAP) 75 mg QPM PO 12/12/16 21:00 01/11/17 07:59 Doxycycline Hyclate (Vibramycin Cap) 100 mg BID PO 12/12/16 12:00 12/22/16 11:59 12/12/16 12:18 100 MG Review of Systems Constitutional: + fever, + chills, + sweats Physical Exam Date Time Temp Pulse Resp B/P (MAP) Pulse Ox O2 Delivery O2 Flow Rate FiO2 12/12/16 07:45 Room Air 12/12/16 07:13 37.3 99 18 135/87 (103) 93 Room Air 12/12/16 01:46 36.8 98 18 128/87 98 Room Air 12/12/16 01:45 Room Air 12/12/16 01:17 36.8 96 18 129/83 95 Room Air 12/12/16 00:05 111 18 105/73 92 Room Air 12/12/16 00:03 105 12/11/16 22:45 114 20 131/86 95 Room Air 12/11/16 20:51 129 22 131/87 95 12/11/16 20:16 94 Room Air 12/11/16 19:33 38.3 142 18 130/89 94 Room Air Musculoskeletal: Patient has a positive Spurling's on the left. Positive Lhermitte phenomenon with cervical extension. He has great range of motion of the left shoulder which does not reproduce his symptoms. Strength is intact bilateral upper extremities. No evidence of upper motor neuron signs. Negative ankle clonus. Equivocal Babinski bilaterally. 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 Skin: normal color, warm/dry Lymphatic: no adenopathy Laboratory Results Last 24 Hours Test 12/11/16 20:00 12/11/16 20:01 12/11/16 20:45 12/11/16 20:47 White Blood Count 14.63 K/uL Red Blood Count 4.91 M/uL Hemoglobin 14.8 g/dL Hematocrit 44.6 % Mean Corpuscular Volume 90.8 fL Mean Corpuscular Hemoglobin 30.1 pg Mean Corpuscular Hemoglobin Concent 33.2 g/dl Platelet Count 210 K/uL Mean Platelet Volume 10.0 fL Neutrophils (%) (Auto) 84.7 % Lymphocytes (%) (Auto) 6.8 % Monocytes (%) (Auto) 6.0 % Eosinophils (%) (Auto) 1.1 % Basophils (%) (Auto) 0.1 % Neutrophils # (Auto) 12.38 K/uL Lymphocytes # (Auto) 1.00 K/uL Monocytes # (Auto) 0.88 K/uL Eosinophils # (Auto) 0.16 K/uL Basophils # (Auto) 0.02 K/uL RDW Standard Deviation 44.8 fL RDW Coefficient of Variation 13.6 % Immature Granulocyte % (Auto) 1.3 % Immature Granulocyte # (Auto) 0.19 K/uL Red Blood Cell Morphology Unremarkable Erythrocyte Sedimentation Rate 2 mm/hr Prothrombin Time 9.5 SECONDS Prothromb Time International Ratio 0.9 Activated Partial Thromboplast Time 24.2 SECONDS Partial Thromboplastin Ratio 0.9 Sodium Level 136 mmol/L Potassium Level 4.0 mmol/L Chloride Level 103 mmol/L Carbon Dioxide Level 25 mmol/L Anion Gap 8.0 mmol/L Blood Urea Nitrogen 23 mg/dl Creatinine 1.00 mg/dl Est Creatinine Clear Calc Drug Dose 96.7 ml/min Estimated GFR () 105.6 Estimated GFR (Non- 91.1 BUN/Creatinine Ratio 23.4 Random Glucose 96 mg/dl Calcium Level 8.3 mg/dl Ferritin 826.0 ng/ml Total Bilirubin 0.6 mg/dl Aspartate Amino Transf (AST/SGOT) 198 U/L Alanine Aminotransferase (ALT/SGPT) 156 U/L Alkaline Phosphatase 87 U/L C-Reactive Protein 0.91 mg/dl Total Protein 6.4 gm/dl Albumin 3.3 gm/dl Globulin 3.1 gm/dl Albumin/Globulin Ratio 1.1 Acetaminophen Level < 2 ug/ml Lyme Disease IgG Antibody NEG Lyme Disease IgM Antibody NEG Monoscreen NEG Bedside Lactic Acid Venous 1.19 mmol/L Urine Color YELLOW Urine Appearance CLEAR Urine pH 5.0 Urine Specific [place] 1.014 Urine Protein NEG Urine Glucose (UA) NEG Urine Ketones NEG Urine Occult Blood NEG Urine Nitrite NEG Urine Bilirubin NEG Urine Urobilinogen NEG Urine Leukocyte Esterase NEG Urine WBC (Auto) 1-5 /hpf Urine RBC (Auto) 0-4 /hpf Urine Hyaline Casts (Auto) 1-5 /lpf Urine Epithelial Cells (Auto) 0-5 /lpf Urine Bacteria (Auto) NEG Influenza Type A (RT-PCR) Neg for Influ A Influenza Type A Antigen Neg for Influ A Influenza Type B Antigen Neg for Influ B Influenza Type B (RT-PCR) Neg for Influ B Test 12/11/16 21:39 12/11/16 23:20 12/12/16 08:17 12/12/16 11:43 Creatine Kinase MB Ratio 1.9 Total Creatine Kinase 111 U/L Creatine Kinase MB 2.2 ng/ml Troponin I 0.025 ng/ml Hepatitis C Antibody NEG White Blood Count 12.23 K/uL Red Blood Count 4.88 M/uL Hemoglobin 14.3 g/dL Hematocrit 44.7 % Mean Corpuscular Volume 91.6 fL Mean Corpuscular Hemoglobin 29.3 pg Mean Corpuscular Hemoglobin Concent 32.0 g/dl RDW Standard Deviation 47.4 fL RDW Coefficient of Variation 14.1 % Platelet Count 218 K/uL Mean Platelet Volume 10.0 fL Sodium Level 139 mmol/L Potassium Level 3.9 mmol/L Chloride Level 105 mmol/L Carbon Dioxide Level 26 mmol/L Anion Gap 8.0 mmol/L Blood Urea Nitrogen 15 mg/dl Creatinine 0.95 mg/dl Est Creatinine Clear Calc Drug Dose 101.0 ml/min Estimated GFR () 112.4 Estimated GFR (Non- 97.0 BUN/Creatinine Ratio 15.3 Random Glucose 102 mg/dl Calcium Level 8.6 mg/dl Total Bilirubin 0.6 mg/dl Aspartate Amino Transf (AST/SGOT) 124 U/L Alanine Aminotransferase (ALT/SGPT) 194 U/L Alkaline Phosphatase 81 U/L Total Protein 6.4 gm/dl Albumin 3.2 gm/dl Globulin 3.2 gm/dl Albumin/Globulin Ratio 1.0 Patient Name: RADHA CURIEL Unit Number: [id number] Dictated: 12/11/162237 Transcribed: 12/11/162237 MS Printed Date/Time: [~ rep prt dt]/[~ rep prt tm] [~ rep ct labl] - [~ rep ct ivnm] [facility] [place] [address] Dictated: 12/11/162237 Transcribed: 12/11/162237 MS Printed Date/Time: [~ rep prt dt]/[~ rep prt tm] [~ rep ct labl] - [~ rep ct ivnm] Patient: RADHA CURIEL Address1: [address] [place] [address] Rec: [id number] Address2: Acct ID: [id number] [facility] Zip: [place] [address] Date: 1970 Sex: M Room/Bed: Ref Phy: No Doctor, Assigned SC: ANA Att Phy: Report #: [id number] Dimple Phy: No Doctor, Assigned Test: CVC Admit Phy: Burr Grinder: RHODA Interpreting Phy: Filiberto Singh M.D. Diagnosis: EXTREME PAIN IN LT SHOULDER/ NECK AND BACK Ordering Phy: Aden Sylvester MD Service Date: 12/11/16 Admit Date: 12/11/16 MNE: [id number] CONF: DICTATED BY: Filiberto Singh M.D.]] CC: Aden Sylvester MD No Doctor, Assigned Endcc: [~ rep ct add3]] CERVICAL SPINE COMBO HISTORY: Pain. Neuropathy. Pt c/o severe neck pain, fever TECHNIQUE: Multiplanar multisequence MRI of the cervical spine was performed both before and after the use of intravenous contrast. COMPARISON STUDY: None: Findings Signal characteristics of the vertebral bodies are unremarkable. Mild degenerative disc changes throughout. No abnormal postcontrast enhancement. Some compromise exam technically due to patient motion C2-C3: No significant central canal or neural foraminal narrowing. C3-C4: Broad-based bulging disc. Minimal impact with anterior cervical cord. C4-C5: Mild osteophytic narrowing right neuroforamina C5-C6: Mild broad-based bulging disc. Contact with but no significant deformity of the cervical cord. Mild osteophytic narrowing left neuroforamina C6-C7: Broad-based bulging disc showing contact with the cervical cord. No significant deformity of that structure. Moderate narrowing of the neuroforamina bilaterally. C7-T1: No significant central canal or neural foraminal narrowing. IMPRESSION: 1. Moderate broad-based bulging discs C3-C4, C5-C6, and C6-C7. 2. Osteophytic narrowing of several neural foramina bilaterally including a mild osteophytic narrowing of the left neuroforamina at C5-C6. 3. No abnormal postcontrast enhancement. The above report was generated using voice recognition software. It may contain grammatical, syntax or spelling errors. Electronically signed by: Filiberto Singh M.D. 12/11/2016 10:42 PM Dictated Date/Time: 12/11/2016 10:38 PM The status of this report is Signed. Draft = Not yet reviewed or approved by Radiologist. Signed = Reviewed and approved by Radiologist. <AttendingPhy></AttendingPhy> <FamilyPhy>No Doctor, Assigned</FamilyPhy> < PrimaryPhy>No Doctor, Assigned</PrimaryPhy> <UnitNumber>[id number]</UnitNumber> <VisitNumber>[id number]</VisitNumber> <PatientName>RADHA CURIEL</PatientName> < DateOfBirth>1970</DateOfBirth> <Location>C.[facility]B</Location> <ServiceDate></ServiceDate> <MNE>ESINDI</MNE> <OrderingPhy>Aden Sylvester MD</ OrderingPhy> <OrderingPhyMNE>f rep ord dr augustine</OrderingPhyMNE> <DictatingPhyMNE> f rep dict dr augustine</DictatingPhyMNE> <CCListMNE>f rep ct davide</CCListMNE> < AdmittingPhyMNE>f pt admit dr augustine</AdmittingPhyMNE> <AttendingPhyMNE>f pt attend dr augustine</AttendingPhyMNE> <ConsultingPhyMNE>f pt consult dr augustine</ConsultingPhyMNE> <FamilyPhyMNE>f pt fam dr augustine</FamilyPhyMNE> <OtherPhyMNE>f pt other dr augustine</OtherPhyMNE> < PrimaryPhyMNE>f pt prim care dr augustine</PrimaryPhyMNE> <ReferringPhyMNE>f pt referring dr augustine</ReferringPhyMNE> Assessment & Plan Assessment: Left cervical radiculopathy. Plan: Cases been reviewed with Dr. Mora as well as imaging. Although not noted on patient cervical MRI report it is felt the patient has moderate to severe left-sided neural foraminal stenosis at the C5 6, C6 7 levels. This is consistent with his symptoms. Medicine as well as infectious disease has been consulted. They're currently working up his leukocytosis as well as elevated CRP and fever. We obviously cannot dey into anything surgically in light of this at this point in time. We will continue to follow. He understands in light of his elevated labs and findings were also unable to pursue cervical epidural injections at this point in time. Consider consultation pain management for medication management recommendations. Thank you for this consult
--- NOTE | 2016-12-12 13:16 | INFECT. DISEASE CONSULTATION ---
DATE OF CONSULTATION: 12/12/2016 REQUESTING PHYSICIAN: Dr. Lyon. HISTORY OF PRESENT ILLNESS: This is a 46-year-old gentleman who was admitted to the hospital with fevers and chills, which started yesterday afternoon. He also has a history of chronic left shoulder pain, which he states has been there for at least 1 month. He denies any trauma to the area. He did have a history of shoulder pain and did see orthopedic surgery in [place] for steroid injections. He did follow up with this orthopedic physician 3 weeks ago and did receive a cortisone injection with a little relief. He then was seen at an urgent care centered within the last 2 weeks for the same and was given a prednisone taper. He completed this, but did not feel any improvement. He did notice a rash that appeared over his chest and somewhat lesser degree over the back after taking prednisone. He denies any pain in this area. He denies any itching. He does admit to some burning when the shower, but otherwise has no complaints. He denies any purulent drainage from these areas and describes as pimples. He denies any fevers or chills until yesterday. He did have a fever overnight of 38.3. He was placed empirically on vancomycin and Zosyn and he is tolerating these antibiotics well. His white blood cell count was elevated at 14.6; however, his sed rate is 2. His LFTs were elevated with an AST of 198 and ALT of 156; however, an ultrasound of the abdomen was unremarkable. He does state he was taking a significant amount of Tylenol prior to admission to the hospital secondary to shoulder pain. He did have a urinalysis, which was negative. His CRP is only 0.9. Lactic acid is unremarkable. Lyme screen and mono screen were negative. Hep C antibody is negative. Flu swab was negative. Blood cultures were obtained and are pending. Chest x-ray did not show any evidence of infiltrate. He also underwent MRI of the cervical spine, which was negative as well. He denies any other rashes on the skin. He denies any tick or bug bites. 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 He currently denies any fevers or chills. He denies any chest pain, cough, shortness of breath, nausea, vomiting or diarrhea. His appetite has been stable. His weight has been stable. Remaining review of systems reviewed and are negative. PAST MEDICAL HISTORY: Significant for ADHD, degenerative cervical disk, high cholesterol, and GERD. PAST SURGICAL HISTORY: Significant for reconstructive surgery of the left hand in 2015. FAMILY HISTORY: Noncontributory. SOCIAL HISTORY: Negative for tobacco use or drug use. He drinks occasionally. He is unemployed. He lives with his family. He denies any sick contacts. ALLERGIES: HE IS ALLERGIC TO LINCOMYCIN. MEDICATIONS: Include Effexor, vancomycin, Zosyn, gabapentin, Lipitor, Lovenox, Flexeril, Dilaudid, Roxicodone, and Tylenol. PHYSICAL EXAMINATION: VITAL SIGNS: He is currently afebrile. T-max is 38.3, pulse 99, respiratory rate 18, Oxygen saturation is 93%-98% on room air. GENERAL: He is awake, alert and oriented x3. He is in no acute distress. HEENT: Mucous membranes are moist. Extraocular muscles are intact. HEART: Regular. LUNGS: Clear bilaterally. ABDOMEN: Soft, nontender, and nondistended. EXTREMITIES: There is no lower extremity edema bilaterally. There is no swelling or erythema over the left shoulder. He does have full range of motion. Sensation is intact in the left upper extremity. He does have what appears to be acne over the chest wall and to a lesser degree over the back. There is no warmth, erythema or drainage. LABORATORY STUDIES: CBC yesterday reveals a white blood cell count of 14.6. Today, it is 12.2. Hemoglobin 14.3 and platelets are 218. His sed rate was negative at 2. Chemistry panel reveals a sodium of 139, potassium 3.9, chloride 105, bicarbonate 26, BUN 15, creatinine 0.9, and glucose 102. AST is 124 and ALT is 194. CRP is negative. Urinalysis was unremarkable. Acetaminophen level was less than 2. ЕКАТЕРИНА screen is pending. Tick disease panel is pending. Flu swab is negative. [place] screen is negative. Hep C antibody is negative. Hepatitis A and B are pending. Lyme screen is negative. Juve-Martinez pending. Blood cultures are pending. IMAGING: As above. ASSESSMENT AND PLAN: Febrile illness, infectious versus noninfectious. It is interesting that his inflammatory markers are negative. He does not have any risk factor for tick-borne disease; however, he does have elevated LFTs and fever and certainly doxycycline will be initiated in the interim pending the results of his tick-borne panel. Blood cultures are pending. An orthopedic evaluation is pending as well. I will await the results of those. Human immunodeficiency virus also would be in the differential, although I do not elicit any specific risk factors for this. We will follow along with you. Thank you for this consultation. ZACKERY
--- NOTE | 2016-12-12 14:59 | Progress Note ---
Internal Med Progress Note Date of Service: Dec 12, 2016. Provider Documentation: SUBJECTIVE: The patient Was seen and examined Admitted with fever and ongoing left Shoulder and associated neck pain with radiation down the arm Denies any other neurologic symptoms OBJECTIVE: Vital Signs-as noted below Exam: General-Minimal distress at rest Eyes-normal ENT-normal Neck-Supple Lungs-Clear to auscultate bilaterally Heart-Regular,no murmur appreciated Abdomen-Benign,no masses,bowel sound present Extremities-No edema Neuro-AAOx3 Lab data as noted below. ASSESSMENT & PLAN: SEPSIS Meets criteria for sepsis per 2001 definition and current CMS guidelines (fever , tachycardia, leukocytosis). Patient has been experiencing neck and left shoulder pain as outlined in the HPI. Does not look like Septic Arthritis No apparent epidural abscess cervical spine per MRI. Blood cultures were obtained in ED and patient was started on broad-spectrum antibiotic coverage with piperacillin/tazobactam and vancomycin. Will continue same antibiotics. Recent onset pustular rash on upper part of the trunk. Check MRI left shoulder to rule out septic arthritis. Consult ID-appreciate Input . NECK / SHOULDER PAIN Ongoing / progressive problem for several weeks. Imaging of cervical spine per MRI demonstrates degenerative disc disease as detailed above. Check MRI left shoulder to rule out septic arthritis-pending. Consult Orthopedics for their input-appreciate Input . Advised pain therapy consult ELEVATED LFT'S Liver US and hepatitis evaluation ordered in ED- results pending. Patient denies excessive use of alcohol or acetaminophen. Monitor LFT VTE PROPHYLAXIS SQ enoxaparin. Ambulate. DISPOSITION Expected discharge to home. Internal Medicine follow-up with Dr. Mcqueen. Vital Signs: Date Time Temp Pulse Resp B/P (MAP) Pulse Ox O2 Delivery O2 Flow Rate FiO2 12/12/16 07:45 Room Air 12/12/16 07:13 37.3 99 18 135/87 (103) 93 Room Air 12/12/16 01:46 36.8 98 18 128/87 98 Room Air 12/12/16 01:45 Room Air 12/12/16 01:17 36.8 96 18 129/83 95 Room Air 12/12/16 00:05 111 18 105/73 92 Room Air 12/12/16 00:03 105 12/11/16 22:45 114 20 131/86 95 Room Air 12/11/16 20:51 129 22 131/87 95 12/11/16 20:16 94 Room Air 12/11/16 19:33 38.3 142 18 130/89 94 Room Air Lab Results: Results Past 24 Hours Test 12/11/16 20:00 12/11/16 20:01 12/11/16 20:45 12/11/16 20:47 Range/Units White Blood Count 14.63 4.8-10.8 K/uL Red Blood Count 4.91 4.7-6.1 M/uL Hemoglobin 14.8 14.0-18.0 g/dL Hematocrit 44.6 42-52 % Mean Corpuscular Volume 90.8 80-100 fL Mean Corpuscular Hemoglobin 30.1 25-34 pg Mean Corpuscular Hemoglobin Concent 33.2 32-36 g/dl Platelet Count 210 130-400 K/uL Mean Platelet Volume 10.0 7.4-10.4 fL Neutrophils (%) (Auto) 84.7 % Lymphocytes (%) (Auto) 6.8 % Monocytes (%) (Auto) 6.0 % Eosinophils (%) (Auto) 1.1 % Basophils (%) (Auto) 0.1 % Neutrophils # (Auto) 12.38 1.4-6.5 K/uL Lymphocytes # (Auto) 1.00 1.2-3.4 K/uL Monocytes # (Auto) 0.88 0.11-0.59 K/uL Eosinophils # (Auto) 0.16 0-0.5 K/uL Basophils # (Auto) 0.02 0-0.2 K/uL RDW Standard Deviation 44.8 36.4-46.3 fL RDW Coefficient of Variation 13.6 11.5-14.5 % Immature Granulocyte % (Auto) 1.3 % Immature Granulocyte # (Auto) 0.19 0.00-0.02 K/uL Red Blood Cell Morphology Unremarkable Erythrocyte Sedimentation Rate 2 0-14 mm/hr Prothrombin Time 9.5 9.0-12.0 SECONDS Prothromb Time International Ratio 0.9 0.9-1.1 Activated Partial Thromboplast Time 24.2 21.0-31.0 SECONDS Partial Thromboplastin Ratio 0.9 Sodium Level 136 136-145 mmol/L Potassium Level 4.0 3.5-5.1 mmol/L Chloride Level 103 98-107 mmol/L Carbon Dioxide Level 25 21-32 mmol/L Anion Gap 8.0 3-11 mmol/L Blood Urea Nitrogen 23 7-18 mg/dl Creatinine 1.00 0.60-1.40 mg/dl Est Creatinine Clear Calc Drug Dose 96.7 ml/min Estimated GFR () 105.6 Estimated GFR (Non- 91.1 BUN/Creatinine Ratio 23.4 10-20 Random Glucose 96 70-99 mg/dl Calcium Level 8.3 8.5-10.1 mg/dl Ferritin 826.0 8.0-388.0 ng/ml Total Bilirubin 0.6 0.2-1 mg/dl Aspartate Amino Transf (AST/SGOT) 198 15-37 U/L Alanine Aminotransferase (ALT/SGPT) 156 12-78 U/L Alkaline Phosphatase 87 45-117 U/L C-Reactive Protein 0.91 0-0.29 mg/dl Total Protein 6.4 6.4-8.2 gm/dl Albumin 3.3 3.4-5.0 gm/dl Globulin 3.1 2.5-4.0 gm/dl Albumin/Globulin Ratio 1.1 0.9-2 Acetaminophen Level < 2 10-30 ug/ml Lyme Disease IgG Antibody NEG NEG Lyme Disease IgM Antibody NEG NEG Monoscreen NEG NEG Bedside Lactic Acid Venous 1.19 0.90-1.70 mmol/L Urine Color YELLOW Urine Appearance CLEAR CLEAR Urine pH 5.0 4.5-7.5 Urine Specific [place] 1.014 1.000-1.030 Urine Protein NEG NEG Urine Glucose (UA) NEG NEG Urine Ketones NEG NEG Urine Occult Blood NEG NEG Urine Nitrite NEG NEG Urine Bilirubin NEG NEG Urine Urobilinogen NEG NEG Urine Leukocyte Esterase NEG NEG Urine WBC (Auto) 1-5 0-5 /hpf Urine RBC (Auto) 0-4 0-4 /hpf Urine Hyaline Casts (Auto) 1-5 0-5 /lpf Urine Epithelial Cells (Auto) 0-5 0-5 /lpf Urine Bacteria (Auto) NEG NEG Influenza Type A (RT-PCR) Neg for Influ A NEG Influenza Type A Antigen Neg for Influ A NEG Influenza Type B Antigen Neg for Influ B NEG Influenza Type B (RT-PCR) Neg for Influ B NEG Test 12/11/16 21:39 12/11/16 23:20 12/12/16 08:17 12/12/16 11:43 Range/Units Creatine Kinase MB Ratio 1.9 0-3.0 Total Creatine Kinase 111 39-308 U/L Creatine Kinase MB 2.2 0.5-3.6 ng/ml Troponin I 0.025 0-0.045 ng/ml Hepatitis C Antibody NEG NEG White Blood Count 12.23 4.8-10.8 K/uL Red Blood Count 4.88 4.7-6.1 M/uL Hemoglobin 14.3 14.0-18.0 g/dL Hematocrit 44.7 42-52 % Mean Corpuscular Volume 91.6 80-100 fL Mean Corpuscular Hemoglobin 29.3 25-34 pg Mean Corpuscular Hemoglobin Concent 32.0 32-36 g/dl RDW Standard Deviation 47.4 36.4-46.3 fL RDW Coefficient of Variation 14.1 11.5-14.5 % Platelet Count 218 130-400 K/uL Mean Platelet Volume 10.0 7.4-10.4 fL Sodium Level 139 136-145 mmol/L Potassium Level 3.9 3.5-5.1 mmol/L Chloride Level 105 98-107 mmol/L Carbon Dioxide Level 26 21-32 mmol/L Anion Gap 8.0 3-11 mmol/L Blood Urea Nitrogen 15 7-18 mg/dl Creatinine 0.95 0.60-1.40 mg/dl Est Creatinine Clear Calc Drug Dose 101.0 ml/min Estimated GFR () 112.4 Estimated GFR (Non- 97.0 BUN/Creatinine Ratio 15.3 10-20 Random Glucose 102 70-99 mg/dl Calcium Level 8.6 8.5-10.1 mg/dl Total Bilirubin 0.6 0.2-1 mg/dl Aspartate Amino Transf (AST/SGOT) 124 15-37 U/L Alanine Aminotransferase (ALT/SGPT) 194 12-78 U/L Alkaline Phosphatase 81 45-117 U/L Total Protein 6.4 6.4-8.2 gm/dl Albumin 3.2 3.4-5.0 gm/dl Globulin 3.2 2.5-4.0 gm/dl Albumin/Globulin Ratio 1.0 0.9-2 Microbiology Results 12/11/16 Blood Culture, Received Pending 12/11/16 Blood Culture, Received Pending
[2016-12-12] MEDS: METHYLPHENIDATE PO SCH (15:13)
[2016-12-12 15:19] VITALS: BP 147/80; PULSE 97; TEMP 36.7; O2SAT 96
[2016-12-12 15:45] VITALS: BP 118/86
--- NOTE | 2016-12-12 18:25 | Pharmacy Progress Note ---
Pharmacy Abx Initial Consult Date of Service Dec 12, 2016. Pharmacy Dosing Scope Date of Consult: 12/12/16 Consultation requested by: Dr. Lyon Pharmacy is consulted to initiate Vanc and Zosyn IV therapy, order appropriate labs and adjust drug dose/frequency. Subjective The patient is a 46 year old male admitted on Dec 12, 2016 at 00:45. Objective Height (Feet): 5 Height (Inches): 7.00 Weight (Kilograms): 80.700 Vital Signs (Past 12Hrs) Vital Signs Past 12 Hours Date Time Temp Pulse Resp B/P (MAP) Pulse Ox O2 Delivery O2 Flow Rate FiO2 12/12/16 16:00 Room Air 12/12/16 15:45 118/86 (97) 12/12/16 15:19 36.7 97 18 147/80 (102) 96 Room Air 12/12/16 07:45 Room Air 12/12/16 07:13 37.3 99 18 135/87 (103) 93 Room Air Lab Results (24Hrs) Laboratory Tests (24 Hours) Test 12/11/16 20:00 12/11/16 23:20 12/12/16 08:17 C-Reactive Protein 0.91 mg/dl (0-0.29) H Erythrocyte Sedimentation Rate 2 mm/hr (0-14) White Blood Count 14.63 K/uL (4.8-10.8) H 12.23 K/uL (4.8-10.8) H Red Blood Count 4.91 M/uL (4.7-6.1) Hemoglobin 14.8 g/dL (14.0-18.0) Hematocrit 44.6 % (42-52) Mean Corpuscular Volume 90.8 fL (80-100) Mean Corpuscular Hemoglobin 30.1 pg (25-34) Mean Corpuscular Hemoglobin Concent 33.2 g/dl (32-36) Platelet Count 210 K/uL (130-400) Mean Platelet Volume 10.0 fL (7.4-10.4) Neutrophils (%) (Auto) 84.7 % Lymphocytes (%) (Auto) 6.8 % Monocytes (%) (Auto) 6.0 % Eosinophils (%) (Auto) 1.1 % Basophils (%) (Auto) 0.1 % Neutrophils # (Auto) 12.38 K/uL (1.4-6.5) H Lymphocytes # (Auto) 1.00 K/uL (1.2-3.4) L Monocytes # (Auto) 0.88 K/uL (0.11-0.59) H Eosinophils # (Auto) 0.16 K/uL (0-0.5) Basophils # (Auto) 0.02 K/uL (0-0.2) Total Creatine Kinase 111 U/L (39-308) Micro Results Date/Time Source Procedure Growth Status 12/11/16 20:04 Blood Blood Culture Pending Received 12/11/16 20:00 Blood Blood Culture Pending Received Assessment & Plan Assessment 46 year old male admitted with neck and left shoulder pain, recent onset of pustular rash on upper trunk. Patient was febrile and tachycardic with leukocytosis at time of admission. Empiric antibiotic therapy initiated - r/o septic arthritis * Doxycycline added by ID service for coverage of tick-borne diseases Plan Empiric Vanc + Zosyn + Doxycycline Vancomycin IV * Loading dose: 1000 mg * Maintenance dose: 1000 mg IV every 10 hours * Goal trough level : 15 to 20 mcg/mL * Please note, antibiotic ordered with "EMPIRIC" indication, therefore it will discontinue after 48 hours unless continued by physician. Piperacillin/tazobactam * 4.5 g bolus administered over 30 minutes, then 4.5 g IV extended infusion every 8 hours for CrCl greater than 20 mL/min * Will decrease to 3.375g IV every 8 hours Pharmacy will continue to follow and will adjust dose/frequency as necessary. Thank you.
[2016-12-12] MEDS ORDERED: NURSING VERBAL MED ORDER ONE (18:45)
[2016-12-12] MEDS: VENLAFAXINE HCL XR 75 MG CAPXR PO SCH (19:06)
[2016-12-12] MEDS ORDERED: GADAVIST IV PRN (21:45)
--- NOTE | 2016-12-12 21:45 | DIAGNOSTIC IMAGING REPORT ---
MRI LEFT SHOULDER WITHOUT A WITH GADOLINIUM CLINICAL HISTORY: Left shoulder pain and fever. COMPARISON STUDY: Conventional radiographic study dated 12/11/2016 FINDINGS: Imaging was performed in the axial, coronal, and sagittal planes. Imaging was performed before and after the administration of 8 cc of intravenous Gadavist. There are no areas of marrow replacement to indicate occult fracture, bone bruise, neoplasm, or osteomyelitis. The bicipital tendon appears normal. There is no evidence of rotator cuff tear. There is no evidence of pathologic muscular atrophy. There are no pathologically enhancing masses. There is a para labral cyst arising from the posterior inferior labrum. There are small ganglion cysts versus septated small joint effusion located in the subscapularis bursa, and adjacent to the inferoposterior labrum. IMPRESSION: 1. No evidence of osteomyelitis. No evidence of septic arthritis. 2. No evidence of occult fracture 3. No evidence of rotator cuff tear. No evidence of bicipital tendon tear 4. Para labral cyst arising from the posterior inferior labrum 5. Small ganglia versus septated joint effusion located adjacent to the inferoposterior labrum and in the subscapularis bursa Electronically signed by: Shaji Escobar M.D. 12/12/2016 9:44 PM Dictated Date/Time: 12/12/2016 9:36 PM
[2016-12-13 00:27] VITALS: BP 133/89; PULSE 102; TEMP 36.7; O2SAT 95
[2016-12-13] MEDS: PIPERACILL/TAZOBAC IV 3.375 GM in DEXTROSE 5% 100ML IV SCH ×3 (01:58→18:26)
[2016-12-13] MEDS: VANCOMYCIN INJ 1,000 MG in SODIUM CHLORIDE 0.9% 250ML 250 ML IV SCH ×2 (06:04→16:54)
[2016-12-13] MEDS: OXYCODONE HCL IR 5 MG TAB (IMMEDIATE RELEASE) PO PRN ×4 (06:29→23:22)
[2016-12-13 07:32] VITALS: BP 138/83; PULSE 90; TEMP 36.9; O2SAT 96
[2016-12-13 08:00] VITALS: O2SAT 96
[2016-12-13] MEDS: ENOXAPARIN 40 MG/0.4 ML SYR SQ SCH (08:00)
[2016-12-13] MEDS: ATORVASTATIN 10 MG TAB PO SCH (08:56)
[2016-12-13] MEDS: GABAPENTIN 300 MG CAP PO SCH ×3 (08:56→21:13)
[2016-12-13] MEDS: METHYLPHENIDATE HCL 54 MG PO SCH (08:56)
[2016-12-13] MEDS: DOXYCYCLINE HYCLATE 100 MG CAP PO SCH ×2 (08:56→21:13)
--- NOTE | 2016-12-13 08:57 | CONSULTATION REPORT ---
DATE OF CONSULTATION: 12/13/2016 REASON FOR CONSULT: Question of left shoulder pain. HISTORY OF PRESENT ILLNESS: The patient is a 46-year-old white male who was admitted on December 11 by [facility] for neck and left shoulder pain. He had apparently been seen by orthopedics a few weeks prior and his left shoulder was injected with steroids for possible tendinitis. He was seen by Dr. Mcqueen in the recent past and was started on gabapentin and he continued to have cervical pain that radiated to his left hand. He continued to have the pain worsened and he came into the Emergency Room. He was seen by the staff and was admitted by [facility] for further care. PAST MEDICAL HISTORY: ADHD, degenerative cervical disk disease, dyslipidemia, and GERD. PAST SURGICAL HISTORY: Reconstruction of the hand in the past. FAMILY HISTORY: Diabetes mellitus, heart disease, hypertension, and kidney disease. SOCIAL HISTORY: Nonsmoker. Drinks alcohol socially and is . MEDICATIONS: Atorvastatin 10 mg p.o. daily, gabapentin 100 mg p.o. t.i.d., methylphenidate extended release 54 mg p.o. daily, Effexor 75 mg p.o. daily, Flexeril 5 mg p.o. b.i.d. p.r.n. and oxycodone IR 1-2 tabs p.o. q. 4 hours p.r.n. REVIEW OF SYSTEMS: As per admitting history and physical. PHYSICAL EXAMINATION: EXTREMITIES: Focused on the patient's left shoulder, shoulder symmetry looks essentially normal compared to the right. He has some noted acne over the posterior aspect of the shoulder. There are no areas of acne that are crusted or draining. There is no erythema over the left shoulder at this time and he is completely nontender on palpation of the left shoulder throughout. The patient's active and passive range of motion is essentially within normal limits without pain. He states that when his shoulder hurts is whenever he is at rest and it seems to come from the base of the neck and come across the shoulder itself and also then down into his forearm, where which he states feels like a charley horse. Shoulder strength appears essentially normal at this time and currently, he has no gross motor or sensory deficits seen. An MRI was performed of the left shoulder last night and is essentially within normal limits. No abscesses or osteomyelitis noted with normal rotator cuff anatomy, etc. The patient did undergo a cervical spine combo, which after being read by our spine team, which they feel there is a moderate to severe left-sided neural foraminal stenosis at the C5-C6 and C6-C7 levels, which is consistent with his symptoms. ASSESSMENT: Left shoulder pain, likely secondary to C5-C6 and C6-C7, left-sided neural foraminal stenosis. No obvious signs of infection through MRI of the left shoulder. PLAN: I will have Dr. Walsh see the patient today for any further input. However, at this point with his likely cause of his shoulder pain being cervical in nature, general orthopedics will likely sign off secondary to no obvious shoulder injury and/or infection at this time. We will defer to Dr. Mora and his spine team for further treatment of his cervical issues.
[2016-12-13 09:58] LABS: CREATININE 0.93 mg/dl (0.60-1.40)
[2016-12-13 10:30] LABS: HEMATOCRIT 44.1 % (42-52); MEAN CELL VOLUME 92.1 fL (80-100); MEAN CORPUSCULAR HEMOGLOBIN 31.5 pg (25-34); MEAN CORPUSCULAR HGB CONC 34.2 g/dl (32-36); PLATELET COUNT 221 K/uL (130-400); RED BLOOD COUNT 4.79 M/uL (4.7-6.1); WHITE BLOOD COUNT 9.07 K/uL (4.8-10.8)
[2016-12-13 13:54] LABS: EBV EARLY ANTIGEN AB <9.00 U/ML
--- NOTE | 2016-12-13 14:52 | Progress Note ---
Subjective Date of Service: Dec 13, 2016. Subjective remains afebrile. on emperic abx. all viral tick borne serologies pending. blood cultures no growth. MRI UE negative. ortho following. No overnight events. Problem List Medical Problems: (1) Left cervical radiculopathy Status: Acute Objective Vital Signs Date Time Temp Pulse Resp B/P (MAP) Pulse Ox O2 Delivery O2 Flow Rate FiO2 12/13/16 08:00 96 Room Air 12/13/16 07:32 36.9 90 18 138/83 (101) 96 12/13/16 00:27 36.7 102 20 133/89 (104) 95 Room Air 12/13/16 00:00 Room Air 12/12/16 16:00 Room Air 12/12/16 15:45 118/86 (97) 12/12/16 15:19 36.7 97 18 147/80 (102) 96 Room Air Laboratory Results Item Value Date Time Blood Culture - Preliminary Resulted 12/11/161999 Blood NO GROWTH TO DATE. Blood Culture - Preliminary Resulted 12/11/162003 Blood NO GROWTH TO DATE. Last 24 Hours Test 12/13/16 08:23 12/13/16 08:32 White Blood Count 9.07 K/uL Red Blood Count 4.79 M/uL Hemoglobin 15.1 g/dL Hematocrit 44.1 % Mean Corpuscular Volume 92.1 fL Mean Corpuscular Hemoglobin 31.5 pg Mean Corpuscular Hemoglobin Concent 34.2 g/dl RDW Standard Deviation 46.7 fL RDW Coefficient of Variation 13.8 % Platelet Count 221 K/uL Mean Platelet Volume 10.0 fL Creatinine 0.93 mg/dl Est Creatinine Clear Calc Drug Dose 103.2 ml/min Estimated GFR () 115.3 Estimated GFR (Non- 99.5 Assessment and Plan (1) Fever Assessment & Plan: continue abx for now, so far no + micro. will follow
[2016-12-13 14:56] VITALS: BP 122/74; PULSE 86; TEMP 36.5; O2SAT 93
[2016-12-13] MEDS ORDERED: VANCOMYCIN TROUGH SCH (15:30)
--- NOTE | 2016-12-13 16:14 | Orthopedic Progress Note ---
Orthopedic Progress Note Date of Service Dec 13, 2016. Objective L shoulder: NL ROM, strength. No pain with RTC testing or impingements signs. Has pain down shoulder with neck rotation Date Time Temp Pulse Resp B/P (MAP) Pulse Ox O2 Delivery O2 Flow Rate FiO2 12/13/16 14:56 36.5 86 20 122/74 (90) 93 12/13/16 08:00 96 Room Air 12/13/16 07:32 36.9 90 18 138/83 (101) 96 12/13/16 00:27 36.7 102 20 133/89 (104) 95 Room Air 12/13/16 00:00 Room Air Laboratory Results 24 Hours: Test 12/13/16 08:23 Hematocrit 44.1 % Hemoglobin 15.1 g/dL Assessment & Plan Assessment: Cervical radiculopathy Plan: Shoulder exam is nl. Agree that shoulder symptoms are related to spine. General Ortho will sign off. Thank you.
--- NOTE | 2016-12-13 16:22 | Progress Note ---
Internal Med Progress Note Date of Service: Dec 13, 2016. Provider Documentation: SUBJECTIVE: The patient Was seen and examined Admitted with fever and ongoing left Shoulder and associated neck pain with radiation down the arm Denies any other neurologic symptoms Much better today Left Shoulder pain is improved Neck pain is still there OBJECTIVE: Vital Signs-as noted below Exam: General-Minimal distress at rest Eyes-normal ENT-normal Neck-Supple No localized tenderness ,neck movement not stiff and or very painful No neuro symptoms Lungs-Clear to auscultate bilaterally Heart-Regular,no murmur appreciated Abdomen-Benign,no masses,bowel sound present Extremities-No edema Neuro-AAOx3 Lab data as noted below. ASSESSMENT & PLAN: SEPSIS Meets criteria for sepsis per 2001 definition and current CMS guidelines (fever , tachycardia, leukocytosis). Patient has been experiencing neck and left shoulder pain as outlined in the HPI. Does not look like Septic Arthritis No apparent epidural abscess cervical spine per MRI. Blood cultures were obtained in ED and patient was started on broad-spectrum antibiotic coverage with piperacillin/tazobactam and vancomycin. Will continue same antibiotics. Recent onset pustular rash on upper part of the trunk-slightly better . Check MRI left shoulder : No Osteomyelitis and or Septic arthritis. Consult ID-appreciate Input . Continue current medication NECK / SHOULDER PAIN Ongoing / progressive problem for several weeks. Imaging of cervical spine per MRI demonstrates degenerative disc disease as below ::1. Moderate broad-based bulging discs C3-C4, C5-C6, and C6-C7. 2. Osteophytic narrowing of several neural foramina bilaterally including a mild osteophytic narrowing of the left neuroforamina at C5-C6. 3. No abnormal postcontrast enhancement. Check MRI left shoulder to rule out septic arthritis-no Osteomyelitis and no septic arthritis Consult Orthopedics for their input-appreciate Input and signed off. Spine surgery opinion pending ELEVATED LFT'S Liver US and hepatitis evaluation ordered in ED- results pending. Patient denies excessive use of alcohol or acetaminophen. Monitor LFT-improving Serology -pending VTE PROPHYLAXIS SQ enoxaparin. Ambulate. DISPOSITION Expected discharge to home. Internal Medicine follow-up with Dr. Mcqueen. Vital Signs: Date Time Temp Pulse Resp B/P (MAP) Pulse Ox O2 Delivery O2 Flow Rate FiO2 12/13/16 14:56 36.5 86 20 122/74 (90) 93 12/13/16 08:00 96 Room Air 9/26/17 07:32 36.9 90 18 138/83 (101) 96 12/13/16 00:27 36.7 102 20 133/89 (104) 95 Room Air 12/13/16 00:00 Room Air Lab Results: Results Past 24 Hours Test 12/13/16 08:23 12/13/16 08:32 12/13/16 15:58 Range/Units White Blood Count 9.07 4.8-10.8 K/uL Red Blood Count 4.79 4.7-6.1 M/uL Hemoglobin 15.1 14.0-18.0 g/dL Hematocrit 44.1 42-52 % Mean Corpuscular Volume 92.1 80-100 fL Mean Corpuscular Hemoglobin 31.5 25-34 pg Mean Corpuscular Hemoglobin Concent 34.2 32-36 g/dl RDW Standard Deviation 46.7 36.4-46.3 fL RDW Coefficient of Variation 13.8 11.5-14.5 % Platelet Count 221 130-400 K/uL Mean Platelet Volume 10.0 7.4-10.4 fL Creatinine 0.93 0.60-1.40 mg/dl Est Creatinine Clear Calc Drug Dose 103.2 ml/min Estimated GFR () 115.3 Estimated GFR (Non- 99.5
[2016-12-13] MEDS: VENLAFAXINE HCL XR 75 MG CAPXR PO SCH (21:13)
--- NOTE | 2016-12-13 21:49 | Pharmacy Progress Note ---
Pharmacy Abx Dose Short Note Date of Service Dec 13, 2016. Assessment & Plan Assessment 46 year old male admitted with neck and left shoulder pain, recent onset of pustular rash on upper trunk. Empiric antibiotic therapy initiated - r/o septic arthritis, r/o tick-borne diseases * Day # 2 of antimicrobial therapy. * Cultures negative to date Plan Continue empiric Vanc + Zosyn + Doxycycline Vancomycin * Trough level of 8.5 mcg/mL is subtherapeutic * Change to 1250 mg (15.5 mg/kg) IV every 8 hours * Goal trough level : 15 to 20 mcg/mL * Trough level ordered for: 12/15/16 Zosyn * Continue 3.375g IV every 8 hours (ext. infusion) Doxy - not pharmacy consult Pharmacy will continue to follow and will adjust dose/frequency as necessary. Thank you.
[2016-12-13] MEDS: VANCOMYCIN INJ 1,250 MG in SODIUM CHLORIDE 0.9% 250ML 250 ML IV SCH (22:02)
[2016-12-14 00:04] VITALS: BP 136/81; PULSE 92; TEMP 36.6; O2SAT 96
[2016-12-14] MEDS: PIPERACILL/TAZOBAC IV 3.375 GM in DEXTROSE 5% 100ML IV SCH ×2 (02:14→12:47)
[2016-12-14] MEDS: VANCOMYCIN INJ 1,250 MG in SODIUM CHLORIDE 0.9% 250ML 250 ML IV SCH ×2 (06:31→14:17)
[2016-12-14] MEDS: OXYCODONE HCL IR 5 MG TAB (IMMEDIATE RELEASE) PO PRN ×2 (06:37→13:01)
[2016-12-14 07:06] VITALS: BP 116/80; PULSE 93; TEMP 36.4; O2SAT 95
[2016-12-14 08:00] VITALS: O2SAT 95
[2016-12-14] MEDS: ENOXAPARIN 40 MG/0.4 ML SYR SQ SCH (08:00)
[2016-12-14] MEDS: METHYLPHENIDATE PO SCH (08:00)
[2016-12-14] MEDS: METHYLPHENIDATE HCL 54 MG PO SCH (08:00)
[2016-12-14] MEDS: DOXYCYCLINE HYCLATE 100 MG CAP PO SCH (08:41)
[2016-12-14] MEDS: ATORVASTATIN 10 MG TAB PO SCH (08:41)
[2016-12-14] MEDS: GABAPENTIN 300 MG CAP PO SCH ×2 (08:41→14:17)
[2016-12-14 08:55] LABS: HEMATOCRIT 46.4 % (42-52); MEAN CELL VOLUME 91.2 fL (80-100); MEAN CORPUSCULAR HEMOGLOBIN 30.5 pg (25-34); MEAN CORPUSCULAR HGB CONC 33.4 g/dl (32-36); MEAN PLATELET VOLUME 9.9 fL (7.4-10.4); PLATELET COUNT 239 K/uL (130-400); RED BLOOD COUNT 5.09 M/uL (4.7-6.1); WHITE BLOOD COUNT 8.75 K/uL (4.8-10.8)
[2016-12-14 09:21] LABS: BUN/CREATININE RATIO 15.9 (10-20); POTASSIUM 4.1 mmol/L (3.5-5.1)
--- NOTE | 2016-12-14 10:29 | Orthopedic Progress Note ---
Orthopedic Progress Note Date of Service Dec 14, 2016. Subjective Additional Notes: Mr. Salazar reports his left upper extremity pain and neck pain are slightly improved. He wants to go home. Currently on IV vancomycin and Zosyn. We are still awaiting final analysis and some of his blood work. Blood cultures are no growth to date. Objective He sitting in bed no obvious distress. Strength is intact. Otherwise exam unchanged Date Time Temp Pulse Resp B/P (MAP) Pulse Ox O2 Delivery O2 Flow Rate FiO2 12/14/16 07:06 36.4 93 20 116/80 (92) 95 Room Air 12/14/16 00:04 36.6 92 20 136/81 (99) 96 Room Air 12/14/16 00:00 Room Air 12/13/16 16:00 Room Air 12/13/16 14:56 36.5 86 20 122/74 (90) 93 Laboratory Results 24 Hours: Test 12/14/16 08:30 Hematocrit 46.4 % Hemoglobin 15.5 g/dL Assessment & Plan Assessment: Cervical radiculopathy Plan: Shoulder exam is nl. Agree that shoulder symptoms are related to spine. General Ortho will sign off. Thank you. At this point in time, patient is still going undergoing workup through infectious disease, therefore, we cannot pursue epidural injections or surgical intervention in light of this workup still processing. Patient is ultimately interested in pursuing pain management injections on an outpatient basis once he is deemed medically stable to have this performed. He can follow up in our office on an outpatient basis
--- NOTE | 2016-12-14 13:39 | Progress Note ---
Subjective Date of Service: Dec 14, 2016. Subjective remains afebrile. blood cultures negative, no evidence of collection, septic joint on MRI. Ortho holding off of additional inpatient workup. remains on abx. tick borne serologies pending. No overnight events. Problem List Medical Problems: (1) Left cervical radiculopathy Status: Acute Objective Vital Signs Date Time Temp Pulse Resp B/P (MAP) Pulse Ox O2 Delivery O2 Flow Rate FiO2 12/14/16 08:00 95 Room Air 12/14/16 07:06 36.4 93 20 116/80 (92) 95 Room Air 12/14/16 00:04 36.6 92 20 136/81 (99) 96 Room Air 12/14/16 00:00 Room Air 12/13/16 16:00 Room Air 12/13/16 14:56 36.5 86 20 122/74 (90) 93 Laboratory Results Last 24 Hours Test 12/13/16 15:58 12/14/16 08:30 Vancomycin Level Trough 8.5 mcg/ml White Blood Count 8.75 K/uL Red Blood Count 5.09 M/uL Hemoglobin 15.5 g/dL Hematocrit 46.4 % Mean Corpuscular Volume 91.2 fL Mean Corpuscular Hemoglobin 30.5 pg Mean Corpuscular Hemoglobin Concent 33.4 g/dl RDW Standard Deviation 46.2 fL RDW Coefficient of Variation 13.7 % Platelet Count 239 K/uL Mean Platelet Volume 9.9 fL Sodium Level 141 mmol/L Potassium Level 4.1 mmol/L Chloride Level 105 mmol/L Carbon Dioxide Level 28 mmol/L Anion Gap 8.0 mmol/L Blood Urea Nitrogen 16 mg/dl Creatinine 1.00 mg/dl Est Creatinine Clear Calc Drug Dose 95.9 ml/min Estimated GFR () 105.6 Estimated GFR (Non- 91.1 BUN/Creatinine Ratio 15.9 Random Glucose 104 mg/dl Calcium Level 9.0 mg/dl Assessment and Plan (1) Fever Assessment & Plan: resolved, no clear infectious source found but multiple studies pending. will follow off of IV abx as cultures negative. could continue with 14 day course doxy for potential tick borne illness as these serologies remaining pending. will need followup LFTS with PCP in next 4-6 weeks. If remains afebrile and clinically stable no contraindication to d/c from ID standpoint.
--- NOTE | 2016-12-14 14:44 | Progress Note ---
Internal Med Progress Note Date of Service: Dec 14, 2016. Provider Documentation: SUBJECTIVE: The patient Was seen and examined Admitted with fever and ongoing left Shoulder and associated neck pain with radiation down the arm Denies any other neurologic symptoms Much better today Left Shoulder pain is improved Ready to be discharged OBJECTIVE: Vital Signs-as noted below Exam: General-Minimal distress at rest Eyes-normal ENT-normal Neck-Supple No localized tenderness ,neck movement not stiff and or very painful No neuro symptoms Lungs-Clear to auscultate bilaterally Heart-Regular,no murmur appreciated Abdomen-Benign,no masses,bowel sound present Extremities-No edema Neuro-AAOx3 Lab data as noted below. ASSESSMENT & PLAN: SEPSIS Meets criteria for sepsis per 2001 definition and current CMS guidelines (fever , tachycardia, leukocytosis). Patient has been experiencing neck and left shoulder pain as outlined in the HPI. Does not look like Septic Arthritis No apparent epidural abscess cervical spine per MRI. Blood cultures were obtained in ED and patient was started on broad-spectrum antibiotic coverage with piperacillin/tazobactam and vancomycin. Will continue same antibiotics. Recent onset pustular rash on upper part of the trunk-slightly better . Check MRI left shoulder : No Osteomyelitis and or Septic arthritis. Consult ID-appreciate Input . Continue current medication Will discharge on Doxycycline and Probiotics NECK / SHOULDER PAIN Ongoing / progressive problem for several weeks. Imaging of cervical spine per MRI demonstrates degenerative disc disease as below ::1. Moderate broad-based bulging discs C3-C4, C5-C6, and C6-C7. 2. Osteophytic narrowing of several neural foramina bilaterally including a mild osteophytic narrowing of the left neuroforamina at C5-C6. 3. No abnormal postcontrast enhancement. Check MRI left shoulder to rule out septic arthritis-no Osteomyelitis and no septic arthritis Consult Orthopedics for their input-appreciate Input and signed off. Spine surgery input appreciated OP Injections when the infection is over ELEVATED LFT'S Liver US and hepatitis evaluation ordered in ED- results pending. Patient denies excessive use of alcohol or acetaminophen. Monitor LFT-improving Serology -pending VTE PROPHYLAXIS SQ enoxaparin. Ambulate. DISPOSITION Expected discharge to home. Internal Medicine follow-up with Dr. Mcqueen. Vital Signs: Date Time Temp Pulse Resp B/P (MAP) Pulse Ox O2 Delivery O2 Flow Rate FiO2 12/14/16 08:00 95 Room Air 12/14/16 07:06 36.4 93 20 116/80 (92) 95 Room Air 12/14/16 00:04 36.6 92 20 136/81 (99) 96 Room Air 12/14/16 00:00 Room Air 12/13/16 16:00 Room Air 12/13/16 14:56 36.5 86 20 122/74 (90) 93 Lab Results: Results Past 24 Hours Test 12/13/16 15:58 12/14/16 08:30 Range/Units Vancomycin Level Trough 8.5 SEE COMMENT mcg/ml White Blood Count 8.75 4.8-10.8 K/uL Red Blood Count 5.09 4.7-6.1 M/uL Hemoglobin 15.5 14.0-18.0 g/dL Hematocrit 46.4 42-52 % Mean Corpuscular Volume 91.2 80-100 fL Mean Corpuscular Hemoglobin 30.5 25-34 pg Mean Corpuscular Hemoglobin Concent 33.4 32-36 g/dl RDW Standard Deviation 46.2 36.4-46.3 fL RDW Coefficient of Variation 13.7 11.5-14.5 % Platelet Count 239 130-400 K/uL Mean Platelet Volume 9.9 7.4-10.4 fL Sodium Level 141 136-145 mmol/L Potassium Level 4.1 3.5-5.1 mmol/L Chloride Level 105 98-107 mmol/L Carbon Dioxide Level 28 21-32 mmol/L Anion Gap 8.0 3-11 mmol/L Blood Urea Nitrogen 16 7-18 mg/dl Creatinine 1.00 0.60-1.40 mg/dl Est Creatinine Clear Calc Drug Dose 95.9 ml/min Estimated GFR () 105.6 Estimated GFR (Non- 91.1 BUN/Creatinine Ratio 15.9 10-20 Random Glucose 104 70-99 mg/dl Calcium Level 9.0 8.5-10.1 mg/dl
[2016-12-14] MEDS ORDERED: OXYC1TAB3 PO (14:48)
[2016-12-14] MEDS ORDERED: DXY100 PO (14:48)
[2016-12-14] MEDS ORDERED: LCTX PO (14:48)
--- NOTE | 2016-12-14 14:52 | Discharge Instructions ---
Discharge Instructions Date of Service Dec 14, 2016. Admission Reason for Admission: FEVER Discharge Discharge Diagnosis / Problem: Left Shoulder pain,Neck pain,Febrile illness Discharge Goals Goal(s): Prevent Disease Progression Activity Recommendations Activity Limitations: resume your previous activity . Instructions / Follow-Up Instructions / Follow-Up Dr Dickens on 12/20/16 at 11:00AM.Please keep appointment with ortho and ID Current Hospital Diet Patient's current hospital diet: Regular Diet Discharge Diet Recommended Diet: Regular Diet Pending Studies Studies pending at discharge: yes List of pending studies: Viral and Hepatitis Serology Medical Emergencies . Who to Call and When: Medical Emergencies: If at any time you feel your situation is an emergency, please call 911 immediately. . Non-Emergent Contact Non-Emergency issues call your: Primary Care Provider . Past History Medical & Surgical History: (1) Left shoulder pain (2) Degenerative cervical disc (3) GERD (gastroesophageal reflux disease) (4) ADHD (5) Fever (6) Status post reconstruction left hand . "Provider Documentation" section prepared by Marco Fofana. . VTE Core Measure Inpt VTE Proph given/why not?: Enoxaparin (Lovenox)SQ
[2016-12-14 15:00] VITALS: BP 149/88; PULSE 98; TEMP 36.4; O2SAT 97
[2016-12-14 15:15] VITALS: BP 149/88; PULSE 98; TEMP 36.4; O2SAT 97
[2016-12-14 19:36] LABS: EHRLICHIA CHAFF IGG AB <1:64 (<1:64); EHRLICHIA CHAFF IGM AB <1:20 (<1:20)
[2016-12-14 21:30] LABS: ANAPLASMA PHAGOCYTOPHIL DNA Not Detected (Not Detected); ANAPLASMA PHAGOCYTOPHIL IGG <1:64 (<1:64); ANAPLASMA PHAGOCYTOPHIL IGM <1:20 (<1:20)
[2016-12-15] MEDS ORDERED: VANCOMYCIN TROUGH SCH (05:30)
--- NOTE | 2016-12-15 10:38 | Discharge Summary ---
Discharge Summary Date of Service Dec 15, 2016. Discharge Summary Admission Date: Dec 12, 2016 at 00:45 Discharge Date: Dec 14, 2016 Discharge Disposition: Home Principal Diagnosis: Left Shoulder pain,Neck pain,Febrile illness Secondary Diagnoses/Problems: Please see H&P and Hospital progress note Consultations: ID,Ortho and Spine surgery Medication Reconciliation New Medications: Lactobacillus Acidophilus (Lactinex) Tab 2 TAB PO BID for 60 Days, TAB Doxycycline Hyclate (Doxycycline Hyclate) 100 Mg Cap 100 MG PO BID for 14 Days, #28 CAP Changed Medications: Oxycodone Ir (Roxicodone Ir) 5 Mg Tab 1 TAB PO Q4H PRN for Pain for 7 Days, #28 TAB (Changed from: 1-2 TAB; 24) For Initial Treatment Continued Medications: Atorvastatin (Lipitor) 10 Mg Tab 10 MG PO DAILY Cyclobenzaprine Hcl (Flexeril) 5 Mg Tab 5 MG PO BID PRN for Muscle Spasms, TAB PRN Gabapentin (Neurontin) 100 Mg Cap 100 MG PO TID PATIENT STATES HE TAKES "A LOT MORE" THAN 3 TIMES A DAY. Methylphenidate Hcl (Methylphenidate Hcl Er) 54 Mg Tab 54 MG PO DAILY, TAB Venlafaxine Hcl (Effexor Extended Rel) 75 Mg Capcr 75 MG PO DAILY, #30 Admission Information HPI (per Admitting provider): 46-year-old male followed by Dr. Mcqueen. History of cervical degenerative disc disease and other problems noted below. Experienced worsening neck and left shoulder pain a couple months ago. Was seen by Orthopedics a few weeks ago.. Left shoulder injected with steroids, patient believes for possible tendinitis. Seen in clinic 11/[address] Mcqueen and started on gabapentin. He continued to have cervical pain that seemed to radiate to his left hand. Seen in urgent care center and prescribed prednisone. Seen in ED here earlier today because of worsening pain. Given prescription for oxycodone interaction is made for outpatient follow-up. This afternoon, he developed fever and chills. He returned to the ED this evening because of persistent severe pain left shoulder. Pt reports that oxycodone helps some, but does not relieve the pain. Pain severe- 9-10/10, worse with movement of arm. Seems that he has both localized shoulder pain as well as cervical pain radiating down the left arm. Past Medical/Surgical History Chronic and Resolved Medical Problems: (1) ADHD Status: Chronic (2) Degenerative cervical disc Status: Chronic (3) Dyslipidemia Status: Chronic (4) GERD (gastroesophageal reflux disease) Status: Chronic Surgical Problems: (1) Status post reconstruction hand Status: Chronic . Family History Diabetes mellitus Heart disease Hypertension Kidney disease Kidney stones Social History Smoking Status: Never Smoker Alcohol Use: socially Drug Use: none Marital Status: Occupational Status: employed Multi-Drug Resistant Organisms History of MDRO: No Allergies Coded Allergies: Lincomycin (Unverified Allergy, Mild, 12/11/16) Home Medications Scheduled Atorvastatin (Lipitor), 10 MG PO DAILY Gabapentin (Neurontin), 100 MG PO TID Methylphenidate Hcl (Methylphenidate Hcl Er), 54 MG PO DAILY Venlafaxine Hcl (Effexor Extended Rel), 75 MG PO DAILY Scheduled PRN Cyclobenzaprine Hcl (Flexeril), 5 MG PO BID PRN for Muscle Spasms Oxycodone Ir (Roxicodone Ir), 1-2 TAB PO Q4H PRN for Pain Review of Systems Constitutional: + fever, + chills, No weight loss Eyes: No worsening of vision, No diplopia ENT: No nasal symptoms, No sore throat Respiratory: No cough, No shortness of breath Cardiovascular: No chest pain Abdomen: No pain, No nausea, No vomiting, No diarrhea Musculoskeletal: + joint pain Genitourinary - Male: No hematuria, No dysuria Neurologic: + problem reported (no headache) Endocrine: No excessive thirst, No excessive urination Hematologic / Lymphatic: No abnormal bleeding/bruising, No swollen lymph nodes Integumentary: + rash (rash on chest and back started few days ago) Physical Ex - H&P Physical Exam Vital Signs Date Time Temp Pulse Resp B/P (MAP) Pulse Ox O2 Delivery O2 Flow Rate FiO2 12/12/16 00:05 111 18 105/73 92 Room Air 12/12/16 00:03 105 12/11/16 22:45 114 20 131/86 95 Room Air 12/11/16 20:51 129 22 131/87 95 12/11/16 20:16 94 Room Air 12/11/16 19:33 38.3 142 18 130/89 94 Room Air General Appearance: WD/WN, + mild distress Head: normocephalic, atraumatic Eyes: normal inspection, PERRL, EOMI, sclerae normal (conjunctivae pink) ENT: hearing grossly normal, pharynx normal Neck: supple, no adenopathy, thyroid normal, trachea midline Respiratory/Chest: lungs clear, no respiratory distress, no accessory muscle use Cardiovascular: regular rate, rhythm, no edema, no gallop, no JVD, no murmur, normal peripheral pulses Abdomen/GI: normal bowel sounds, non tender, soft, no organomegaly, no pulsatile mass Extremities/Musculoskelatal: normal inspection, no calf tenderness, normal capillary refill, + pertinent finding (tenderness overlying left shoulder bilaterally; no erythema or warmth) Neurologic/Psych: ui application developer II-XII nml as tested (PERRL, EOMI), no motor/sensory deficits (motor strength grossly intact), alert, normal reflexes, oriented x 3 Skin: + rash (pustular rash trunk with multiple lesions) Diagnostics - H&P Diagnostics Laboratory Results Results Past 24 Hours Test 12/11/16 20:00 12/11/16 20:01 12/11/16 20:45 12/11/16 20:47 Range/Units White Blood Count 14.63 4.8-10.8 K/uL Red Blood Count 4.91 4.7-6.1 M/uL Hemoglobin 14.8 14.0-18.0 g/dL Hematocrit 44.6 42-52 % Mean Corpuscular Volume 90.8 80-100 fL Mean Corpuscular Hemoglobin 30.1 25-34 pg Mean Corpuscular Hemoglobin Concent 33.2 32-36 g/dl Platelet Count 210 130-400 K/uL Mean Platelet Volume 10.0 7.4-10.4 fL Neutrophils (%) (Auto) 84.7 % Lymphocytes (%) (Auto) 6.8 % Monocytes (%) (Auto) 6.0 % Eosinophils (%) (Auto) 1.1 % Basophils (%) (Auto) 0.1 % Neutrophils # (Auto) 12.38 1.4-6.5 K/uL Lymphocytes # (Auto) 1.00 1.2-3.4 K/uL Monocytes # (Auto) 0.88 0.11-0.59 K/uL Eosinophils # (Auto) 0.16 0-0.5 K/uL Basophils # (Auto) 0.02 0-0.2 K/uL RDW Standard Deviation 44.8 36.4-46.3 fL RDW Coefficient of Variation 13.6 11.5-14.5 % Immature Granulocyte % (Auto) 1.3 % Immature Granulocyte # (Auto) 0.19 0.00-0.02 K/uL Red Blood Cell Morphology Unremarkable Erythrocyte Sedimentation Rate 2 0-14 mm/hr Prothrombin Time 9.5 9.0-12.0 SECONDS Prothromb Time International Ratio 0.9 0.9-1.1 Activated Partial Thromboplast Time 24.2 21.0-31.0 SECONDS Partial Thromboplastin Ratio 0.9 Sodium Level 136 136-145 mmol/L Potassium Level 4.0 3.5-5.1 mmol/L Chloride Level 103 98-107 mmol/L Carbon Dioxide Level 25 21-32 mmol/L Anion Gap 8.0 3-11 mmol/L Blood Urea Nitrogen 23 7-18 mg/dl Creatinine 1.00 0.60-1.40 mg/dl Est Creatinine Clear Calc Drug Dose 96.7 ml/min Estimated GFR () 105.6 Estimated GFR (Non- 91.1 BUN/Creatinine Ratio 23.4 10-20 Random Glucose 96 70-99 mg/dl Calcium Level 8.3 8.5-10.1 mg/dl Ferritin 826.0 8.0-388.0 ng/ml Total Bilirubin 0.6 0.2-1 mg/dl Aspartate Amino Transf (AST/SGOT) 198 15-37 U/L Alanine Aminotransferase (ALT/SGPT) 156 12-78 U/L Alkaline Phosphatase 87 45-117 U/L C-Reactive Protein 0.91 0-0.29 mg/dl Total Protein 6.4 6.4-8.2 gm/dl Albumin 3.3 3.4-5.0 gm/dl Globulin 3.1 2.5-4.0 gm/dl Albumin/Globulin Ratio 1.1 0.9-2 Acetaminophen Level < 2 10-30 ug/ml Lyme Disease IgG Antibody NEG NEG Lyme Disease IgM Antibody NEG NEG Monoscreen NEG NEG Bedside Lactic Acid Venous 1.19 0.90-1.70 mmol/L Urine Color YELLOW Urine Appearance CLEAR CLEAR Urine pH 5.0 4.5-7.5 Urine Specific [place] 1.014 1.000-1.030 Urine Protein NEG NEG Urine Glucose (UA) NEG NEG Urine Ketones NEG NEG Urine Occult Blood NEG NEG Urine Nitrite NEG NEG Urine Bilirubin NEG NEG Urine Urobilinogen NEG NEG Urine Leukocyte Esterase NEG NEG Urine WBC (Auto) 1-5 0-5 /hpf Urine RBC (Auto) 0-4 0-4 /hpf Urine Hyaline Casts (Auto) 1-5 0-5 /lpf Urine Epithelial Cells (Auto) 0-5 0-5 /lpf Urine Bacteria (Auto) NEG NEG Influenza Type A (RT-PCR) Neg for Influ A NEG Influenza Type A Antigen Neg for Influ A NEG Influenza Type B Antigen Neg for Influ B NEG Influenza Type B (RT-PCR) Neg for Influ B NEG Test 12/11/16 21:39 12/11/16 23:20 Range/Units Creatine Kinase MB Ratio 1.9 0-3.0 Total Creatine Kinase 111 39-308 U/L Creatine Kinase MB 2.2 0.5-3.6 ng/ml Troponin I 0.025 0-0.045 ng/ml Hepatitis C Antibody NEG NEG Microbiology Results 12/11/16 Blood Culture, Received Pending 12/11/16 Blood Culture, Received Pending Diagnostic Radiology CHEST ONE VIEW PORTABLE FINDINGS: The bones soft tissues and hemidiaphragms are normal. The cardiomediastinal silhouette is normal. The lungs are clear. The pulmonary vasculature is normal. IMPRESSION: Negative chest. The above report was generated using voice recognition software. It may contain grammatical, syntax or spelling errors. Electronically signed by: Filiberto Singh M.D. 12/11/2016 8:16 PM Dictated Date/Time: 12/11/2016 8:16 PM L SHOULDER MIN 2 VIEWS ROUTINE CLINICAL HISTORY: Pt c/o left shoulder pain pain COMPARISON: 09/06/2013 DISCUSSION: The bones and joint spaces appear intact. There is no evidence of fracture, dislocation or bony disease. There is no evidence for soft tissue swelling. IMPRESSION: Negative study. The above report was generated using voice recognition software. It may contain grammatical, syntax or spelling errors. Electronically signed by: Filiberto Singh M.D. 12/11/2016 8:16 PM Dictated Date/Time: 12/11/2016 8:16 PM CERVICAL SPINE COMBO Findings Signal characteristics of the vertebral bodies are unremarkable. Mild degenerative disc changes throughout. No abnormal postcontrast enhancement. Some compromise exam technically due to patient motion C2-C3: No significant central canal or neural foraminal narrowing. C3-C4: Broad-based bulging disc. Minimal impact with anterior cervical cord. C4-C5: Mild osteophytic narrowing right neuroforamina C5-C6: Mild broad-based bulging disc. Contact with but no significant deformity of the cervical cord. Mild osteophytic narrowing left neuroforamina C6-C7: Broad-based bulging disc showing contact with the cervical cord. No significant deformity of that structure. Moderate narrowing of the neuroforamina bilaterally. C7-T1: No significant central canal or neural foraminal narrowing. IMPRESSION: 1. Moderate broad-based bulging discs C3-C4, C5-C6, and C6-C7. 2. Osteophytic narrowing of several neural foramina bilaterally including a mild osteophytic narrowing of the left neuroforamina at C5-C6. 3. No abnormal postcontrast enhancement. The above report was generated using voice recognition software. It may contain grammatical, syntax or spelling errors. Electronically signed by: Filiberto Singh M.D. 12/11/2016 10:42 PM Dictated Date/Time: 12/11/2016 10:38 PM . Impression - H&P Impression Assessment and Plan FEVER / SEPSIS Meets criteria for sepsis per 2001 definition and current CMS guidelines (fever , tachycardia, leukocytosis). Hemodynamically stable. Serum lactate 1.19. Source of infection uncertain. Patient has been experiencing neck and left shoulder pain as outlined in the HPI. No apparent epidural abscess cervical spine per MRI. No soft tissue swelling left shoulder per plain films. Recent onset pustular rash on trunk. Blood cultures were obtained in ED and patient was started on broad-spectrum antibiotic coverage with piperacillin/tazobactam and vancomycin. Will continue same antibiotics. Check MRI left shoulder to rule out septic arthritis. Consult ID. NECK / SHOULDER PAIN Ongoing / progressive problem for several weeks. Imaging of cervical spine per MRI demonstrates degenerative disc disease as detailed above. Uncertain whether shoulder pain is radicular in nature or related to issue in shoulder region. Check MRI left shoulder to rule out septic arthritis. Consult Orthopedics for their input. ELEVATED LFT'S Liver US and hepatitis evaluation ordered in ED- results pending. Patient denies excessive use of alcohol or acetaminophen. Follow. VTE PROPHYLAXIS SQ enoxaparin. Ambulate. DISPOSITION Expected discharge to home. Internal Medicine follow-up with Dr. Mcqueen. . VTE Prophylaxis Given or contraindicated: Enoxaparin (Lovenox)SQ . Physical Exam (per Admitting): General Appearance: WD/WN, + mild distress Head: normocephalic, atraumatic Eyes: normal inspection, PERRL, EOMI, sclerae normal (conjunctivae pink) ENT: hearing grossly normal, pharynx normal Neck: supple, no adenopathy, thyroid normal, trachea midline Respiratory/Chest: lungs clear, no respiratory distress, no accessory muscle use Cardiovascular: regular rate, rhythm, no edema, no gallop, no JVD, no murmur , normal peripheral pulses Abdomen/GI: normal bowel sounds, non tender, soft, no organomegaly, no pulsatile mass Extremities/Musculoskelatal: normal inspection, no calf tenderness, normal capillary refill, + pertinent finding (tenderness overlying left shoulder bilaterally; no erythema or warmth) Neurologic/Psych: ui application developer II-XII nml as tested (PERRL, EOMI), no motor/sensory deficits (motor strength grossly intact), alert, normal reflexes, oriented x 3 Skin: + rash (pustular rash trunk with multiple lesions) Hospital Course SEPSIS Meets criteria for sepsis per 2001 definition and current CMS guidelines (fever , tachycardia, leukocytosis). Patient has been experiencing neck and left shoulder pain as outlined in the HPI. Does not look like Septic Arthritis No apparent epidural abscess cervical spine per MRI. Blood cultures were obtained in ED and patient was started on broad-spectrum antibiotic coverage with piperacillin/tazobactam and vancomycin. Will continue same antibiotics. Recent onset pustular rash on upper part of the trunk-slightly better . Check MRI left shoulder : No Osteomyelitis and or Septic arthritis. Consult ID-appreciate Input . Continue current medication Will discharge on Doxycycline and Probiotics NECK / SHOULDER PAIN Ongoing / progressive problem for several weeks. Imaging of cervical spine per MRI demonstrates degenerative disc disease as below ::1. Moderate broad-based bulging discs C3-C4, C5-C6, and C6-C7. 2. Osteophytic narrowing of several neural foramina bilaterally including a mild osteophytic narrowing of the left neuroforamina at C5-C6. 3. No abnormal postcontrast enhancement. Check MRI left shoulder to rule out septic arthritis-no Osteomyelitis and no septic arthritis Consult Orthopedics for their input-appreciate Input and signed off. Spine surgery input appreciated OP Injections when the infection is over ELEVATED LFT'S Liver US and hepatitis evaluation ordered in ED- results pending. Patient denies excessive use of alcohol or acetaminophen. Monitor LFT-improving Serology -pending VTE PROPHYLAXIS SQ enoxaparin. Ambulate. DISPOSITION Expected discharge to home. Internal Medicine follow-up with Dr. Mcqueen. Total time spent on discharge = 35 minutes This includes examination of the patient, discharge planning, medication reconciliation, and communication with other providers. Discharge Instructions Date of Service Dec 14, 2016. Admission Reason for Admission: FEVER Discharge Discharge Diagnosis / Problem: Left Shoulder pain,Neck pain,Febrile illness Discharge Goals Goal(s): Prevent Disease Progression Activity Recommendations Activity Limitations: resume your previous activity . Instructions / Follow-Up Instructions / Follow-Up Dr Dickens on 12/20/16 at 11:00AM.Please keep appointment with ortho and ID Current Hospital Diet Patient's current hospital diet: Regular Diet Discharge Diet Recommended Diet: Regular Diet Pending Studies Studies pending at discharge: yes List of pending studies: Viral and Hepatitis Serology Medical Emergencies . Who to Call and When: Medical Emergencies: If at any time you feel your situation is an emergency, please call 911 immediately. . Non-Emergent Contact Non-Emergency issues call your: Primary Care Provider . Past History Medical & Surgical History: (1) Left shoulder pain (2) Degenerative cervical disc (3) GERD (gastroesophageal reflux disease) (4) ADHD (5) Fever (6) Status post reconstruction left hand . "Provider Documentation" section prepared by Marco Fofana. . VTE Core Measure Inpt VTE Proph given/why not?: Enoxaparin (Lovenox)SQ <Electronically signed by Marco Fofana M.D.> Additional Copies To Jamar Mcqueen D.O.
[2016-12-15 12:30] LABS: ALPHA-1-ANTITRYPSIN TC 67710E 94 MG/DL (83-199)
== END 2016-12-14 17:50 | disposition home or self-care (01) | DRG 872 ==
LOC: C.EDB 19:31 → C.MS4W 12-12 00:45 → ENRESERV 12-12 01:03
PROVIDERS: ADMIT Hospitalist; ATTEND Internal Medicine
DX: A41.9 Sepsis, unspecified organism (principal); M50.10 Cervical disc disorder with radiculopathy, unspecified cervical region; R94.5 Abnormal results of liver function studies; Z79.899 Other long term (current) drug therapy; Z88.1 Allergy status to other antibiotic agents; Z83.3 Family history of diabetes mellitus; Z82.49 Family history of ischemic heart disease and other diseases of the circulatory system; Z84.1 Family history of disorders of kidney and ureter

== ENCOUNTER → 2016-12-22 | Outpatient (CLI) | payer BC ==
[~2016-12-22] MED LIST changes: -ACETAMINOPHEN PO; +ATOR10TA88 PO; +DXY100 PO; +GABA-112 PO; +LCTX PO; -LPT/40 PO; -LPT40 PO
[2016-12-22 13:07] LABS: CHOLESTEROL/HDL RATIO 4.3
== END | disposition home or self-care (01) ==
LOC: C.LABPBG 10:26
PROVIDERS: ATTEND Family Medicine
DX: R74.8 Abnormal levels of other serum enzymes (principal); E78.5 Hyperlipidemia, unspecified

== ENCOUNTER 2017-05-29 08:30 | Emergency (ER) | payer BC ==
[~2017-05-29] VITALS: Ht 170.2 cm; Wt 82.5 kg
[~2017-05-29 08:30] MED LIST changes: +ATOR10TA82 PO; -ATOR10TA88 PO; -LCTX PO
[2017-05-29 08:36] VITALS: TEMP 36.8; Ht 170.2 cm; Wt 82.5 kg
[2017-05-29] MEDS ORDERED: SODIUM CHLORIDE 0.9% 1000ML 1,000 ML IV STA (09:24)
[2017-05-29] MEDS ORDERED: LPT20 PO (09:29)
[2017-05-29 09:38] LABS: BASO % 0.2 %; BASO ABS # 0.02 K/uL (0-0.2); EOS % 2.3 %; EOS ABS # 0.22 K/uL (0-0.5); HEMATOCRIT 48.6 % (42-52); HEMOGLOBIN 16.4 g/dL (14.0-18.0); IG# 0.02 K/uL (0.00-0.02); LYMPH % 22.9 %; LYMPH ABS # 2.17 K/uL (1.2-3.4); MEAN CELL VOLUME 88.5 fL (80-100); MEAN CORPUSCULAR HEMOGLOBIN 29.9 pg (25-34); MEAN CORPUSCULAR HGB CONC 33.7 g/dl (32-36); MEAN PLATELET VOLUME 10.5 fL (7.4-10.4); MONO % 8.1 %; MONO ABS # 0.77 K/uL (0.11-0.59); NEUT % 66.3 %; NEUT ABS # 6.26 K/uL (1.4-6.5); PLATELET COUNT 263 K/uL (130-400); RED CELL DISTRIBUTION WIDTH CV 12.7 % (11.5-14.5); WHITE BLOOD COUNT 9.46 K/uL (4.8-10.8)
[2017-05-29 09:50] LABS: ALBUMIN 3.9 gm/dl (3.4-5.0); CALCIUM 9.2 mg/dl (8.5-10.1); CREATININE 0.86 mg/dl (0.60-1.40)
--- NOTE | 2017-05-29 09:50 | DIAGNOSTIC IMAGING REPORT ---
CT OF THE HEAD WITHOUT CONTRAST CLINICAL HISTORY: EVALUATE ALTERED MENTAL STATUS/WEAKNESS COMPARISON STUDY: No previous studies for comparison. CT DOSE: 729.78 mGycm TECHNIQUE: Helical axial images of the head were obtained without IV contrast. Automated exposure control was utilized for the study. A dose lowering technique was utilized adhering to the principles of ALARA. FINDINGS: No acute intracranial hemorrhage, midline shift or mass effect is present. Brain volume is normal. Ventricular system is normal. Basilar cisterns are patent. There are no extra-axial collections. Rodriguez-white differentiation is maintained. There are no findings to suggest acute dural sinus thrombosis or acute territorial infarct. There is no calvarial fracture. Several locules of gas within the left infratemporal fossa are likely venous in location. There is an opacified posterior left ethmoid air cell. IMPRESSION: No acute intracranial findings. Electronically signed by: Tommy Rolon M.D. 05/29/2017 9:49 AM Dictated Date/Time: 05/29/2017 9:43 AM
[2017-05-29 10:07] VITALS: O2SAT 100
[2017-05-29 10:11] LABS: INFLUENZA B ANTIGEN Neg for Influ B (NEG)
--- NOTE | 2017-05-29 10:23 | EMERGENCY ROOM VISIT NOTE ---
ED Visit Note First contact with patient: 08:41 CHIEF COMPLAINT: Lightheadedness, headache HISTORY OF PRESENTING ILLNESS: This is a 46-year-old male who presents to the emergency department with complaint of headache and lightheadedness. Patient states that he had flulike symptoms over the weekend with fevers and chills, sore throat, and cough. Patient states Monday morning that he got up and felt like he needed to vomit, he went into the bathroom where he felt very nauseated, lightheaded, diaphoretic, and passed out, hitting the right side of his forehead on the radiator. Patient's heard him fall, and states he was awake by the time she got to the bathroom. He has had intermittent headaches, blurry vision, and lightheadedness since that time. 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 He does note that he has been having some lower back pain and stiffness that is worse with movement since his fall as well. He denies any double vision, neck pain or stiffness, chest pain, shortness of breath, abdominal pain, vomiting or diarrhea, bloody or black stools, urinary symptoms, or rash. REVIEW OF SYSTEMS: A complete 10 point review of systems was reviewed with the patient with pertinent positives and negatives as per history of present illness. All else were negative. PAST MEDICAL HISTORY: Reviewed in chart. SOCIAL HISTORY: Lives at home. He denies tobacco use. ALLERGIES: Reviewed in chart. PHYSICAL EXAM: CONSTITUTIONAL: Pleasant and cooperative. No acute distress. Mildly dehydrated , but otherwise well appearing and well nourished. HEENT: Normocephalic, atraumatic. Pupils equal, round and reactive to light, EOMI. TMs normal. Pharynx normal. Tacky mucous membranes. NECK: Supple, full active range of motion without discomfort. RESPIRATORY: Clear to auscultation bilaterally with no wheezing, crackles, rhonchi or stridor. Equal expansion bilaterally. CARDIOVASCULAR: Regular rate and rhythm with no murmurs, rubs or gallops. Normal peripheral perfusion. No edema. GASTROINTESTINAL: Soft, nontender, nondistended. No palpable masses or HSM. Bowel sounds present in all quadrants. MUSCULOSKELETAL: Full range of motion of all joints without discomfort. INTEGUMENTARY: No rash or other significant dermatologic conditions noted. NEUROLOGIC: Alert and oriented X 4 with normal affect. Cranial nerves II-XII grossly intact, no facial droop. No pronator drift. No focal neurologic deficits noted. Normal strength and sensation in all 4 extremities. Normal speech. Normal gait observed. Negative Romberg. Normal rfwwci-lngd-okzaxo testing. ED COURSE AND MEDICAL DECISION MAKING: CC: Patient presenting with complaint of headache, dizziness/lightheadedness DIFFERENTIAL DIAGNOSIS: Includes, but not limited to syncope, dehydration, electrolyte abnormality, anemia, postconcussive syndrome, intracranial hemorrhage, cardiac dysrhythmia, influenza, pneumonia, among others. INTERPRETATION OF LABS: No leukocytosis, no anemia, no significant electrolyte abnormalities, normal renal function, normal liver enzymes. TSH within normal limits. UA negative for infection. Influenza A/B is negative. IMAGING: CT OF THE HEAD WITHOUT CONTRAST CLINICAL HISTORY: EVALUATE ALTERED MENTAL STATUS/WEAKNESS COMPARISON STUDY: No previous studies for comparison. CT DOSE: 729.78 mGycm TECHNIQUE: Helical axial images of the head were obtained without IV contrast. Automated exposure control was utilized for the study. A dose lowering technique was utilized adhering to the principles of ALARA. FINDINGS: No acute intracranial hemorrhage, midline shift or mass effect is present. Brain volume is normal. Ventricular system is normal. Basilar cisterns are patent. There are no extra-axial collections. Rodriguez-white differentiation is maintained. There are no findings to suggest acute dural sinus thrombosis or acute territorial infarct. There is no calvarial fracture. Several locules of gas within the left infratemporal fossa are likely venous in location. There is an opacified posterior left ethmoid air cell. IMPRESSION: No acute intracranial findings. ----- CHEST 2 VIEWS ROUTINE CLINICAL HISTORY: flu-like symptoms with syncope, eval PNA COMPARISON STUDY: Chest radiograph 06/10/2016. FINDINGS: Lung volumes are normal. There is no consolidation or evidence of pulmonary edema. Cardiac size is at the upper limits of normal. Mediastinal contours are unremarkable. IMPRESSION: No acute cardiopulmonary findings. EKG: Shows normal sinus rhythm with a rate of 69 bpm, no acute ischemic changes , no significant changes when compared to previous EKG from 12/11/2016 by my interpretation. MEDICATION RECONCILIATION: I attest that I have personally reviewed the patient 's current medication list. INITIAL VITAL SIGNS REVIEW: I reviewed the patient's initial vital signs and interpret them as follows: T: Afebrile; BP: Hypertensive; HR: Within normal limits; RR: Within normal limits; Pulse Ox: Within normal limits on room. Blood pressure screening: The patient was found to have an elevated blood pressure and was referred to their primary doctor for recheck and further treatment. SUMMARY: Patient was evaluated at bedside, history and physical exam performed. Patient is alert and oriented, no acute distress, resting calmly in stretcher. Patient does complain of some mild lightheadedness and increased headache with position changes, most significant sitting or standing up from lying down. Orders were placed at bedside for labs, UA, IV fluids for hydration, chest x- ray to evaluate for pneumonia, CT head to evaluate for intracranial trauma. Patient discussed with Dr. Pat, who agrees with my assessment and plan. Labs and imaging reviewed as above, unremarkable. Patient reassessed multiple times throughout ED stay, he is feeling much improved after IV fluids, and states his headache is almost completely gone now and his lightheadedness has also resolved. Patient symptoms do seem consistent with postconcussive syndrome, he was educated regarding concussion management and advised to refrain from driving until he is cleared by his PCP. Patient was updated on all results and plan for discharge, he was encouraged to follow closely with his primary care provider for further management. Patient was also given strict return precautions should his symptoms worsen, he verbalized understanding. Patient was discharged home in stable condition and ambulatory. Problem List Medical Problems: (1) ADHD Status: Chronic (2) Degenerative cervical disc Status: Chronic (3) Dyslipidemia Status: Chronic (4) GERD (gastroesophageal reflux disease) Status: Chronic Surgical Problems: (1) History of hand surgery Status: Resolved (2) Status post reconstruction left hand Status: Chronic Current/Historical Medications Scheduled Atorvastatin (Lipitor), 20 MG PO DAILY Gabapentin (Neurontin), 300 MG PO TID Methylphenidate Hcl (Methylphenidate Hcl Er), 54 MG PO DAILY Venlafaxine Hcl (Effexor Extended Rel), 75 MG PO DAILY Allergies Coded Allergies: Lincomycin (Unverified Allergy, Mild, 05/29/17) Vital Signs Date Time Temp Pulse Resp B/P (MAP) Pulse Ox O2 Delivery O2 Flow Rate FiO2 05/29/17 12:12 84 18 140/96 93 05/29/17 10:42 54 20 130/90 97 Room Air 05/29/17 10:11 74 16 130/82 97 69 126/89 64 126/99 05/29/17 10:07 100 Room Air 05/29/17 09:16 78 05/29/17 08:36 36.8 78 18 163/104 100 Room Air Laboratory Results 05/29/17 09:10 Red Blood Count 5.49, Mean Corpuscular Volume 88.5, Mean Corpuscular Hemoglobin 29.9, Mean Corpuscular Hemoglobin Concent 33.7, Mean Platelet Volume 10.5, Neutrophils (%) (Auto) 66.3, Lymphocytes (%) (Auto) 22.9, Monocytes (%) (Auto) 8.1, Eosinophils (%) (Auto) 2.3, Basophils (%) (Auto) 0.2, Neutrophils # (Auto) 6.26, Lymphocytes # (Auto) 2.17, Monocytes # (Auto) 0.77, Eosinophils # (Auto) 0.22, Basophils # (Auto) 0.02 05/29/17 09:10 Test 05/29/17 09:10 05/29/17 09:35 White Blood Count 9.46 K/uL (4.8-10.8) Red Blood Count 5.49 M/uL (4.7-6.1) Hemoglobin 16.4 g/dL (14.0-18.0) Hematocrit 48.6 % (42-52) Mean Corpuscular Volume 88.5 fL (80-100) Mean Corpuscular Hemoglobin 29.9 pg (25-34) Mean Corpuscular Hemoglobin Concent 33.7 g/dl (32-36) Platelet Count 263 K/uL (130-400) Mean Platelet Volume 10.5 fL (7.4-10.4) Neutrophils (%) (Auto) 66.3 % Lymphocytes (%) (Auto) 22.9 % Monocytes (%) (Auto) 8.1 % Eosinophils (%) (Auto) 2.3 % Basophils (%) (Auto) 0.2 % Neutrophils # (Auto) 6.26 K/uL (1.4-6.5) Lymphocytes # (Auto) 2.17 K/uL (1.2-3.4) Monocytes # (Auto) 0.77 K/uL (0.11-0.59) Eosinophils # (Auto) 0.22 K/uL (0-0.5) Basophils # (Auto) 0.02 K/uL (0-0.2) RDW Standard Deviation 41.0 fL (36.4-46.3) RDW Coefficient of Variation 12.7 % (11.5-14.5) Immature Granulocyte % (Auto) 0.2 % Immature Granulocyte # (Auto) 0.02 K/uL (0.00-0.02) Urine Color YELLOW Urine Appearance CLEAR (CLEAR) Urine pH 7.5 (4.5-7.5) Urine Specific [place] 1.006 (1.000-1.030) Urine Protein NEG (NEG) Urine Glucose (UA) NEG (NEG) Urine Ketones NEG (NEG) Urine Occult Blood NEG (NEG) Urine Nitrite NEG (NEG) Urine Bilirubin NEG (NEG) Urine Urobilinogen NEG (NEG) Urine Leukocyte Esterase NEG (NEG) Anion Gap 6.0 mmol/L (3-11) Est Creatinine Clear Calc Drug Dose 112.7 ml/min Estimated GFR () 122.2 Estimated GFR (Non- 105.5 BUN/Creatinine Ratio 15.2 (10-20) Calcium Level 9.2 mg/dl (8.5-10.1) Total Bilirubin 0.2 mg/dl (0.2-1) Aspartate Amino Transf (AST/SGOT) 20 U/L (15-37) Alanine Aminotransferase (ALT/SGPT) 29 U/L (12-78) Alkaline Phosphatase 91 U/L (45-117) Total Protein 8.0 gm/dl (6.4-8.2) Albumin 3.9 gm/dl (3.4-5.0) Globulin 4.1 gm/dl (2.5-4.0) Albumin/Globulin Ratio 1.0 (0.9-2) Thyroid Stimulating Hormone (TSH) 1.960 uIu/ml (0.300-4.500) Influenza Type A Antigen Neg for Influ A (NEG) Influenza Type B Antigen Neg for Influ B (NEG) Medications Administered Medications (Trade) Dose Ordered Sig/Shawanda Route Start Time Stop Time Status Last Admin Dose Admin Sodium Chloride 1,000 ml @ 999 mls/hr Q1H1M STAT IV 05/29/17 09:24 05/29/17 10:24 DC 05/29/17 09:30 999 MLS/HR Departure Information Impression Primary Impression: Post concussion syndrome Dispostion Home / Self-Care Condition GOOD Referrals Azra Mcduffie DO (PCP) Patient Instructions ED Concussion, [facility] Additional Instructions You most likely have a mild concussion from your recent head injury. It is important to observe both physical and cognitive rest while recovering from a concussion. Physical rest includes no significant physical activity or exertion, heavy lifting over 10 pounds, and increasing sleep and nap times throughout the day as needed. Cognitive rest includes taking breaks from prolonged screen time including TV, tablets, phone, or prolonged periods of talking on the telephone or reading. You should relax in a quiet, dark place for the rest of the day. Avoid any possible triggers including: cigarette smoke, caffeine, nicotine, chocolate, wine, beer, loud noises or music, or bright lights. For pain control, you can use the following [id number]-[id number] medicines (if >12 yo): - Regular strength (325mg/tab) Tylenol (acetaminophen) 2 tabs every 4-6 hours as needed. Do not exceed 10 tablets in a 24 hour period. Avoid taking more than 3000 mg of Tylenol per day. This includes any other sources of acetaminophen you may take on a regular basis. - Regular strength (200 mg/tab) Advil (ibuprofen) 2 tabs every 4-6 hours as needed. Do not exceed a dose of 2400 mg per day. Follow-up with your PCP in the next few days to be rechecked. You should be cleared by your PCP before you return to work. Please return to the ER for any worsening symptoms, including severe worsening headache, persistent vomiting, vision changes, confusion, numbness or weakness on one side of the body, balance issues or difficulty walking, or any other concerns. Work Instructions Return To Work: after follow-up Additional Work Instructions: Return to work as advised by the patient's primary care provider.
--- NOTE | 2017-05-29 10:36 | DIAGNOSTIC IMAGING REPORT ---
CHEST 2 VIEWS ROUTINE CLINICAL HISTORY: flu-like symptoms with syncope, eval PNA COMPARISON STUDY: Chest radiograph 06/10/2016. FINDINGS: Lung volumes are normal. There is no consolidation or evidence of pulmonary edema. Cardiac size is at the upper limits of normal. Mediastinal contours are unremarkable. IMPRESSION: No acute cardiopulmonary findings. Electronically signed by: Tommy Rolon M.D. 05/29/2017 10:34 AM Dictated Date/Time: 05/29/2017 10:34 AM
[2017-05-29 12:12] VITALS: BP 140/96; PULSE 84; O2SAT 93
== END 2017-05-29 12:13 | disposition home or self-care (01) ==
LOC: C.EDB 08:33 → C.EDA 12:13
DX: F07.81 Postconcussional syndrome (principal); F90.9 Attention-deficit hyperactivity disorder, unspecified type; M50.30 Other cervical disc degeneration, unspecified cervical region; E78.5 Hyperlipidemia, unspecified; K21.9 Gastro-esophageal reflux disease without esophagitis; Z88.1 Allergy status to other antibiotic agents

== ENCOUNTER → 2017-10-06 | Outpatient (CLI) | payer BC ==
[~2017-10-06] MED LIST changes: -ATOR10TA82 PO; -CYCL5TAB PO; -DXY100 PO; +LPT20 PO; -OXYC1TAB3 PO
[2017-10-06 13:49] LABS: ALBUMIN 3.8 gm/dl (3.4-5.0); ALKALINE PHOSPHATASE 73 U/L (45-117); ALT/SGPT 22 U/L (12-78); AST/SGOT 17 U/L (15-37); BLOOD UREA NITROGEN 19 mg/dl (7-18); CALCIUM 8.9 mg/dl (8.5-10.1); CARBON DIOXIDE 30 mmol/L (21-32); CHOLESTEROL 287 mg/dl (0-200); CREATININE 0.98 mg/dl (0.60-1.40); GLUCOSE,FASTING 107 mg/dl (70-99); LDL CHOLESTEROL CALCULATED 216 mg/dl; POTASSIUM 4.2 mmol/L (3.5-5.1); SODIUM 140 mmol/L (136-145); TOTAL PROTEIN 7.3 gm/dl (6.4-8.2)
== END | disposition home or self-care (01) ==
LOC: C.LABPBG 08:24
PROVIDERS: ATTEND Physician Assistant
DX: Z00.00 Encounter for general adult medical examination without abnormal findings (principal); E78.5 Hyperlipidemia, unspecified

== ENCOUNTER → 2017-10-09 | Outpatient (CLI) | payer BC | END | disposition home or self-care (01) | LOC: C.LABPBG 15:43 | PROVIDERS: ATTEND Physician Assistant | DX: R73.01 Impaired fasting glucose (principal) ==